=== PATIENT | female | born 1960 ===

== ENCOUNTER 2023-12-12 11:07 | Outpatient (AMB) | payer OTHER, SELFPAY ==
--- NOTE | 2023-12-12 11:13 | MHC.PC.OV ---
Vital Signs 12/12/23 11:14 Height 5 ft 4 in Weight 252 lb 2 oz BMI 43.3 BP 110/68 Blood Pressure Location Lt brachial Position Sitting Respiration 12 Pulse 70 Pulse Source Pulse Oximeter Pulse Oximetry (%) 98 Oxygen Delivery Method Room Air Intake Visit Reasons: EST Care Allergies fentanyl Allergy (Severe, Verified 12/12/23 11:27) Hypotension latex Allergy (Severe, Verified 12/12/23 11:27) Rash acetaminophen [From Tylenol] Allergy (Mild, Verified 12/12/23 11:27) Nausea dimenhydrinate [From Dramamine] Adverse Reaction (Severe, Verified 12/12/23 11:27) Nausea and Vomiting anesthesia Allergy (Severe, Uncoded 12/12/23 11:27) Hypotension fluorescein stain Allergy (Severe, Uncoded 12/12/23 11:27) Anaphylaxis sulfa drugs Allergy (Severe, Uncoded 12/12/23 11:27) Itching excedrine Allergy (Mild, Uncoded 12/12/23 11:27) Nausea Medication List - Last Reconciled 12/12/23 by Asia Motley MD alcohol swabs (BD Alcohol Swabs) pad topical blood-glucose meter,continuous (Dexcom G6 Repairer Kiln Car) As directed blood-glucose sensor (Dexcom G6 Sensor device) As directed insulin aspart U-100 (Novolog FlexPen U-100 Insulin aspart) 1 sliding scale dose subcut USEASDIRECTD insulin degludec (Tresiba FlexTouch U-200 insulin) 20 units subcut BEDTIME insulin pump cart,automated,BT (Omnipod 5 G6 Pods (Gen 5) subcutaneous cartridge) As directed olmesartan-hydrochlorothiazide 40-25 mg 1 tab PO DAILY omeprazole 40 mg PO DAILY pen needle, diabetic (BD Jannette 2nd Gen Pen Needle) As directed Tobacco use date assessed: 12/12/23 Dental Screening Dental Screen Date: 12/12/23 Did you have a dental visit in the last 12 months?: Yes Did you have a dental problem in the last 6 months where you did not have access to dental care?: No Was dental information given to patient?: Yes HPI HPI Comments History of Present Illness Details 63 y/o female with a past medical history of type 1 diabetes, hypertension, GERD, HAYDEE, presenting to [facility] Moved from [place] in Jun 2023 Endocrine-Type 1 diabetes. Sep A1C 6.1%. Dr Rivas. Upcoming visit. GERD: Stable on omeprazole. Tracheomalacia. Believes she had Colonoscopy 2022 Mammo UTD Follows with inclusion manager [facility] Social History (Updated 12/12/23 @ 11:30 by Domonique Roberts [facility]) Housing: House Are you a primary critical care rn to a significant other at home: No Do you presently have visiting nurse or other home services: No 75 years or older and lives alone: No Alcohol intake: never Patient Tobacco Use Status: Never used Tobacco e-Cigarette/Vaping Use: Never Used service: No Current occupational status: retired Cognitive needs: No Hearing needs: No Vision needs: No Questionnaire PHQ-9 Over the last 2 weeks, how often have you been bothered by any of the following problems? 1. Little interest or pleasure in doing things: not at all 2. Feeling down, depressed, or hopeless: not at all 3. Trouble falling or staying asleep, or sleeping too much: not at all 4. Feeling tired or having little energy: more than half the days 5. Poor appetite or overeating: nearly every day 6. Feeling bad about yourself - or that you are a failure or have let yourself or your family down: not at all 7. Trouble concentrating on things, such as reading the newspaper or watching television: not at all 8. Moving or speaking so slowly that other people could have noticed. Or the opposite - being so fidgety or restless that you have been moving around a lot more than usual: not at all 9. Thoughts that you would be better off or of hurting yourself in some way: not at all Total score: 5 Depression Screening Interpretation: Negative (neg) Depression Screening Done: Yes 86977 - PHQ-9 Billing: Yes Source: Developed by Drs. Tremayne Borrego, Jigna Turk, Jason Stephen and colleagues, with an educational mikayla from [employer]. Thrive Questionnaire Date Thrive assessed: 12/12/23 I am a: Patient What is your living situation today?: I have a steady place to live Within the past 12 months, did the food you bought not last and you didn't have the money to get more?: Never true Within the past 12 months, did you worry whether your food would run out before you got money to buy more?: Never true Do you have trouble paying for medicines?: No Do you have trouble getting transportation to medical appointments?: No Do you have trouble paying your heating and electricity bill?: No Do you have trouble taking care of your child, family member or friend?: No Do you have trouble with day-to-day activities such as bathing, preparing meals, shopping, managing finances, etc.?: No Are you currently unemployed and looking for a job?: No Are you interested in more education?: No Please select the resources that you would like help with: None Currently or been in a relationship where the following occur: no concerns reported THRIVE Score: 0 AUDIT C Alcohol Use Questionnaire (AUDIT-C) 1. How often do you have a drink containing alcohol?: Never 3. How often do you have six or more drinks on one occasion?: Never Total Score: 0 RODRIGO-7 AMB Questionnaire RODRIGO-7 Date RODRIGO - 7 assessed: 12/12/23 Feeling nervous, anxious, or on edge: 0 = Not at all Not being able to stop or control worryin = Not at all Worrying too much about different things: 0 = Not at all Trouble relaxin = Not at all Being so restless that it is hard to sit still: 0 = Not at all Becoming easily annoyed or irritable: 0 = Not at all Feeling afraid as if something awful might happen: 0 = Not at all Total RODRIGO-7 score (0-4 normal; 5-9 mild; 10-14 moderate; 15-21 severe): 0 Source: Developed by Drs. Tremayne Borrego, Jigna Turk, Jason Stephen and colleagues, with an educational mikayla from [employer]. RODRIGO-7 Assessment Billing RODRIGO-7 Assessment Tool: RODRIGO-7 Assessment 70712 Review of Systems Const Details: ROS CONSTITUTIONAL: Denies weight loss, fever and chills. HEENT: Denies changes in vision and hearing. RESPIRATORY: Denies SOB and cough. CV: Denies palpitations and CP GI: Denies abdominal pain, nausea, vomiting and diarrhea. : Denies dysuria and urinary frequency. MSK: Denies myalgia and joint pain. SKIN: Denies rash and pruritus. NEUROLOGICAL: Denies headache and syncope. PSYCHIATRIC: Denies recent changes in mood. Denies anxiety and depression. Physical exam (Primary Care) Vital Signs: Last Vital Signs Pulse 70 12/12/23 11:14 Resp 12 12/12/23 11:14 BP 110/68 12/12/23 11:14 Pulse Ox 98 12/12/23 11:14 Oxygen Delivery Method Room Air 12/12/23 11:14 BMI result Body Mass Index 43.3 Tobacco/Smoking Status: Tobacco use Status Tobacco use date assessed 12/12/23 12/12/23 11:33 Patient Tobacco Use Status Never used Tobacco 12/12/23 11:33 e-Cigarette/Vaping Use Never Used 12/12/23 11:33 Depression Screening Interpretation: Negative (neg) Currently or been in a relationship where the following occur: no concerns reported Const Other: PHYSICAL EXAM: GENERAL: Alert and oriented x 3. No acute distress. Well-nourished. EYES: EOMI. Anicteric. HENT: Moist mucous membranes. No scleral icterus. No cervical lymphadenopathy. LUNGS: Clear to auscultation bilaterally. No accessory muscle use. CARDIOVASCULAR: Regular rate and rhythm. No murmur. No JVD. ABDOMEN: Soft, non-tender and non-distended. No palpable masses. EXTREMITIES: No edema. Non-tender.?SKIN: No rashes or lesions. Warm. NEUROLOGIC: No focal neurological deficits. CN II-XII grossly intact PSYCHIATRIC: Cooperative. Appropriate mood and affect. Assessment and Plan Assessment & Plan (1) Establishing care with new doctor, encounter for: Code(s): Z76.89 - Persons encountering health services in other specified circumstances Plan: 63 year old female presenting to establish care. Past medical, surgical, social and family history reviewed. Preventive care measures up to date (2) Primary hypertension: Comment: Controlled on current medication. Efforts toward weight loss including dietary, exercise and pharmacologic discussed. Code(s): I10 - Essential (primary) hypertension (3) Type 1 diabetes: Comment: Controlled. She has an upcoming visit with her grave cleaner Code(s): E10.9 - Type 1 diabetes mellitus without complications Qualifiers: Diabetes mellitus complication status: without complication Qualified Code(s): E10.9 - Type 1 diabetes mellitus without complications (4) Insulin long-term use: Code(s): Z79.4 - intermission coordinator (current) use of insulin (5) GERD (gastroesophageal reflux disease): Code(s): K21.9 - Gastro-esophageal reflux disease without esophagitis Qualifiers: Esophagitis presence: esophagitis presence not specified Qualified Code(s): K21.9 - Gastro-esophageal reflux disease without esophagitis Plan: controlled on PPI therapy. Referral placed to pulmonary (6) Tracheomalacia: Code(s): J39.8 - Other specified diseases of upper respiratory tract (7) HAYDEE (obstructive sleep apnea): Comment: referrral to pulm for HAYDEE management Code(s): G47.33 - Obstructive sleep apnea (adult) (pediatric) (8) Screening for deficiency anemia: Code(s): Z13.0 - Encounter for screening for diseases of the blood and blood-forming organs and certain disorders involving the immune mechanism Orders: Orders Complete Blood Count Auto Diff Today Z13.0 - Encounter for screening for diseases of the blood and blood-forming organs and certain disorders involving the immune mechanism Referrals Pulmonology Referral G47.33 - Obstructive sleep apnea (adult) (pediatric) Gastroenterology Referral J39.8 - Other specified diseases of upper respiratory tract, K21.9 - Gastro-esophageal reflux disease without esophagitis Medications: Changed From olmesartan-hydrochlorothiazide 40-25 mg 1 tab PO DAILY 90 tabs 0RF To olmesartan-hydrochlorothiazide 40-25 mg 1 tab PO DAILY 90 days 90 tabs 3RF Coding Level of Care Code New Pt Level 5 (34373) Diagnoses Establishing care with new doctor, encounter for Z76.89 Primary hypertension I10 Type 1 diabetes mellitus without complication E10.9 Diabetes mellitus complication status: without complication Insulin long-term use Z79.4 Gastroesophageal reflux disease, unspecified whether esophagitis present K21.9 Esophagitis presence: esophagitis presence not specified Tracheomalacia J39.8 HAYDEE (obstructive sleep apnea) G47.33 Screening for deficiency anemia Z13.0 Additional Codes RODRIGO-7 Assessment Billing - RODRIGO-7 Assessment Tool: RODRIGO-7 Assessment [id number] ([id number]) Time Spent (min) 65
[2023-12-12 11:14] VITALS: BP 110/68; PULSE 70; RESP 12; O2SAT 98; BMI 43.3
== END 2023-12-12 12:21 | disposition home or self-care (01) ==
PROVIDERS: PCP Internal Medicine; Visit Provider Internal Medicine
DX: Z76.89 Persons encountering health services in other specified circumstances (principal); I10 Essential (primary) hypertension; E10.9 Type 1 diabetes mellitus without complications; Z79.4 Long term (current) use of insulin; K21.9 Gastro-esophageal reflux disease without esophagitis; J39.8 Other specified diseases of upper respiratory tract; G47.33 Obstructive sleep apnea (adult) (pediatric); Z13.0 Encounter for screening for diseases of the blood and blood-forming organs and certain disorders involving the immune mechanism
CPT/HCPCS: 99205

== ENCOUNTER 2023-12-29 14:45 | Outpatient (REF) | payer OTHER, SELFPAY | END 2023-12-29 14:46 | disposition home or self-care (01) | LOC: CF 14:45 | DX: Z13.89 Encounter for screening for other disorder (principal) ==

== ENCOUNTER 2023-12-31 14:22 | Outpatient (AMB) | payer OTHER, SELFPAY ==
[2023-12-31 14:25] VITALS: BP 120/64; PULSE 76; O2SAT 97; BMI 44.5
--- NOTE | 2023-12-31 14:25 | A.OFFVIS_ITS ---
Vital Signs 3 12/31/23 14:25 Height 5 ft 4 in Weight 259 lb 4 oz BMI 44.5 BP 120/64 Blood Pressure Location Lt brachial Position Sitting Pulse 76 Pulse Source Pulse Oximeter Pulse Oximetry (%) 97 Oxygen Delivery Method Room Air Intake Visit Reasons: Obstructive sleep apnea Allergies fentanyl Allergy (Severe, Verified 12/31/23 14:33) Hypotension latex Allergy (Severe, Verified 12/31/23 14:33) Rash acetaminophen [From Tylenol] Allergy (Mild, Verified 12/31/23 14:33) Nausea dimenhydrinate [From Dramamine] Adverse Reaction (Severe, Verified 12/31/23 14:33) Nausea and Vomiting anesthesia Allergy (Severe, Uncoded 12/31/23 14:33) Hypotension fluorescein stain Allergy (Severe, Uncoded 12/31/23 14:33) Anaphylaxis sulfa drugs Allergy (Severe, Uncoded 12/31/23 14:33) Itching excedrine Allergy (Mild, Uncoded 12/31/23 14:33) Nausea HPI HPI Obstructive sleep apnea: Details: Aleyda is a pleasant 63 year old female, never smoker, with underlying asthma, HAYDEE on CPAP, tracheomalacia, vocal cord dysfunction, DM type I and GERD. She was referred by PCP to establish pulmonary care as she was previously under the care of pulmonary in [place]. She has been maintained on Advair 115 mcg with moderate control of symptoms. She reports dyspnea with moderate exertion, occasional wheezing and chronic dry cough. She denies any chest tightness. She has been maintained on CPAP therapy for severe HAYDEE, 5-20 cm and reports 100% compliance. Reviewed [employer] [facility] on phone to confirm. Will defer updated sleep study at this time, however patient denies overnight oximetry to assess resolution with CPAP therapy. Chest CT from 08/2022 which revealed multiple small pulmonary nodules as well as trachomalacia. She reports good control of GERD symptoms with PPI. She had an echo for evaluation of dyspnea which revealed LVEF 60-65% with mildly enlarged right ventricle with RVSP 21. She denies any occupational exposures. Reports multiple first degree family members with asthma. [facility] Medical History (Updated 01/06/24 @ 19:50 by Alexandra Almanza NP) Screening for deficiency anemia HAYDEE (obstructive sleep apnea) Tracheomalacia GERD (gastroesophageal reflux disease) Insulin long-term use Primary hypertension Type 1 diabetes Surgical History (Updated 12/12/23 @ 13:13 by Domonique Roberts CMA) History of vitrectomy History of cataract surgery History of carpal tunnel release History of partial hysterectomy History of bilateral breast reduction surgery Previous section Family History (Updated 12/12/23 @ 13:04 by Domonique Roberts CMA) Other Family history unknown Social History (Reviewed 12/31/23 @ 14:29 by Lila Dumont [facility]) Household Members: Family Housing: House Are you a primary career portals teacher to a significant other at home: No Do you presently have visiting nurse or other home services: No 75 years or older and lives alone: No Alcohol intake: never Patient Tobacco Use Status: Never used Tobacco e-Cigarette/Vaping Use: Never Used service: No Current occupational status: retired Cognitive needs: No Hearing needs: No Vision needs: No Review of Systems Const Denies chills, Denies excessive sweating, Denies fever(s), Denies headache(s) and Denies night sweats Eyes Denies dry eyes, Denies irritation and Denies itchy eyes ENT Reports Normal hearing present, Denies headache(s), Denies nasal congestion, Denies nasal discharge, Denies post nasal drip and Denies sore throat Card Denies chest pain, Denies chest pain at rest, Denies chest pain with activity, Denies claudication, Denies leg edema, Denies dyspnea, Denies dyspnea on exertion, Denies orthopnea and Denies paroxysmal nocturnal dyspnea Resp Denies chest congestion, Denies cough, Denies excessive phlegm production, Denies pain on inspiration, Denies pain with cough, Denies dyspnea, Denies dyspnea on exertion, Denies stridor and Denies wheezing Musc Denies myalgias Neuro Reports Normal hearing present and Denies headache(s) Endo Denies excessive sweating Tim/Lymph Denies lymphadenopathy Aller/Immun Denies itchy eyes, Denies seasonal rhinorrhea and Denies wheezing Physical Exam Vital Signs: Last Vital Signs Pulse 76 12/31/23 14:25 BP 120/64 12/31/23 14:25 Pulse Ox 97 12/31/23 14:25 Oxygen Delivery Method Room Air 12/31/23 14:25 BMI result Body Mass Index 44.5 Const General: cooperative, healthy appearing, comfortable, no acute distress, well developed and alert Nutritional Appearance: obese Orientation/consciousness: patient oriented x3 Limitations: no limitations HEENT Head: Yes normal to inspection, Yes normocephalic and Yes atraumatic Ears: hearing grossly normal bilaterally and external ears normal Eyes General: appearance normal, both eyes and all related structures Eyelids: Yes eyelids normal Sclerae: sclerae normal EOM: EOMs intact bilaterally Neck Neck: Yes normal visual inspection and Yes no lymphadenopathy Lymphatic: no lymphadenopathy noted Chest Chest palpation & inspection: normal inspection of the chest Resp Effort & Inspection: normal respiratory effort, able to speak in complete sentences, no audible wheezes, no cough, no stridor, not tachypneic, no tripod positioning and no use of accessory muscles Auscultation: clear to auscultation bilaterally Cardio Jugular venous distension: no JVD Rate: regular rate Rhythm: regular rhythm Skin Other: warm, dry General skin exam: no rashes or lesions noted Neuro General: patient oriented x3 Cranial nerves: Yes Normal hearing present Cognition (Neuro): normal cognition Gait exam (Neuro): Normal gait present Extrem General: Yes normal to inspection, Yes capillary refill normal, Yes no clubbing, cyanosis or edema and Yes no pedal edema Psych Appearance: grossly normal and well kempt Speech and movement: Normal speech and movement present and Clear speech present Affect: normal affect Attitude: cooperative Thought process: Normal thought process present Thought content: Normal thought content present Insight: Good insight present (Psych) Judgement: Good judgement present (Psych) Results Reviewed Results Reviewed: Assessment & Plan Assessment & Plan (1) Asthma: Code(s): J45.909 - Unspecified asthma, uncomplicated Category: Medical (2) HAYDEE (obstructive sleep apnea): Code(s): G47.33 - Obstructive sleep apnea (adult) (pediatric) Category: Medical (3) Tracheomalacia: Code(s): J39.8 - Other specified diseases of upper respiratory tract Category: Medical (4) GERD (gastroesophageal reflux disease): Code(s): K21.9 - Gastro-esophageal reflux disease without esophagitis Category: Medical Qualifiers: Esophagitis presence: esophagitis presence not specified Qualified Code(s): K21.9 - Gastro-esophageal reflux disease without esophagitis (5) Multiple pulmonary nodules: Code(s): R91.8 - Other nonspecific abnormal finding of lung field Category: Medical (6) Nocturnal hypoxemia: Code(s): G47.34 - Idiopathic sleep related nonobstructive alveolar hypoventilation Category: Medical Plan Aleyda presents to establish pulmonary care for HAYDEE and asthma. She reports 100% compliance with CPAP therapy, which is reflected in [employer] ranjith. Prior sleep study noted nocturnal hypoxemia however patient never had overnight oximetry to assess for resolution with CPAP therapy. Will enter this. At this time, respiratory symptoms are moderately controlled on Advair, will continue this. Patient does report chronic cough which is likely multifactorial with contirbution from GERD, PND, and tracheobronchomalacia. Will continue to monitor, may benefit from ENT/GI referral. Reviewed prior chest CT which revealed tracheomalacia as well as multiple pulmonary nodules. Will send for repeat chest CT in August 2023 to assess for stability. PFT 08/2022 revealed FEV!/FVC 68, FEV1 64 and DLCO 99%. All questions were answered and patient is in agreement of plan. Will follow up to review results or sooner if needed. Orders: Orders 2 Overnight Pulse Oximetry Today G47.34 - Idiopathic sleep related nonobstructive alveolar hypoventilation CT chest wo IV con 7 Months R91.8 - Other nonspecific abnormal finding of lung field Medications: New 2 fluticasone propion-salmeterol 115-21 mcg/actuation (Advair HFA) 2 puffs inhalation Q12H 12 grams 6RF Coding Level of Care Code New Pt Level 4 (23243) Diagnoses Asthma J45.909 HAYDEE (obstructive sleep apnea) G47.33 Tracheomalacia J39.8 Gastroesophageal reflux disease, unspecified whether esophagitis present K21.9 Esophagitis presence: esophagitis presence not specified Multiple pulmonary nodules R91.8 Nocturnal hypoxemia G47.34
== END 2023-12-31 15:44 | disposition home or self-care (01) ==
PROVIDERS: PCP Internal Medicine; Visit Provider Nurse Practitioner Family
DX: J45.909 Unspecified asthma, uncomplicated (principal); G47.33 Obstructive sleep apnea (adult) (pediatric); J39.8 Other specified diseases of upper respiratory tract; K21.9 Gastro-esophageal reflux disease without esophagitis; R91.8 Other nonspecific abnormal finding of lung field; G47.34 Idiopathic sleep related nonobstructive alveolar hypoventilation
CPT/HCPCS: 99204

== ENCOUNTER → 2023-12-31 14:22 | Outpatient (BNVA) | payer OTHER, SELFPAY | PROVIDERS: PCP Internal Medicine; Visit Provider Nurse Practitioner Family ==

== ENCOUNTER 2024-02-13 09:39 | Outpatient (AMB) | payer OTHER, SELFPAY ==
--- NOTE | 2024-02-13 10:09 | A.OFFPC_ITS ---
Vital Signs 02/13/24 10:18 Height 5 ft 4 in Weight 251 lb BMI 43.1 BP 118/62 Blood Pressure Location Lt brachial Position Sitting Pulse 59 Pulse Source Pulse Oximeter Pulse Oximetry (%) 95 Oxygen Delivery Method Room Air Intake Visit Reasons: Type1 Diabetes Intake Note: Follow up. A1c 6.2 at Endocrinology on 12/26/23 Allergies fentanyl Allergy (Severe, Verified 02/13/24 10:13) Hypotension latex Allergy (Severe, Verified 02/13/24 10:13) Rash acetaminophen [From Tylenol] Allergy (Mild, Verified 02/13/24 10:13) Nausea dimenhydrinate [From Dramamine] Adverse Reaction (Severe, Verified 02/13/24 10:13) Nausea and Vomiting anesthesia Allergy (Severe, Uncoded 02/13/24 10:13) Hypotension fluorescein stain Allergy (Severe, Uncoded 02/13/24 10:13) Anaphylaxis sulfa drugs Allergy (Severe, Uncoded 02/13/24 10:13) Itching excedrine Allergy (Mild, Uncoded 02/13/24 10:13) Nausea Tobacco use date assessed: 12/12/23 Dental Screening Dental Screen Date: 12/12/23 HPI HPI Comments History of Present Illness Details 63 y/o female with a past medical histor y of type 1 diabetes, hypertension, GERD, HAYDEE, presenting to [facility] care Moved from [place] in Jun 2023 Endocrine-Type [address] Rivas. GERD: Stable on omeprazole. Tracheomalacia. She has referral to GI pending. Saw pulmonary. 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 HEENT: Denies changes in vision and hearing. RESPIRATORY: Denies SOB and cough. CV: Denies palpitations and CP GI: Denies abdominal pain, nausea, vomiting and diarrhea. : Denies dysuria and urinary frequency. MSK: Denies new myalgia and joint pain. SKIN: Denies rash and pruritus. NEUROLOGICAL: Denies headache PSYCHIATRIC: Denies recent changes in mood. PHYSICAL EXAM: GENERAL: Alert and oriented x 3. NAD EYES: EOMI. Anicteric. HENT: Moist mucous membranes. No scleral icterus. No cervical lymphadenopathy. LUNGS: Clear to auscultation bilaterally. CARDIOVASCULAR: Regular rate and rhythm. No murmur. No JVD. ABDOMEN: Soft, non-tender +bs EXTREMITIES: No edema. Non-tender. SKIN: No rashes or lesions. Warm. NEUROLOGIC: No focal neurological deficits. CN II-XII grossly intact PSYCHIATRIC: Cooperative. Appropriate mood and affect [facility] Medical History (Updated 02/15/24 @ 11:55 by Asia Motley MD) Screening for deficiency anemia HAYDEE (obstructive sleep apnea) Tracheomalacia GERD (gastroesophageal reflux disease) Insulin long-term use Primary hypertension Type 1 diabetes Surgical History (Updated 12/12/23 @ 13:13 by Domonique Roberts [facility]) History of vitrectomy History of cataract surgery History of carpal tunnel release History of partial hysterectomy History of bilateral breast reduction surgery Previous section Family History (Updated 12/12/23 @ 13:04 by Domonique Roberts CMA) Other Family history unknown Social History (Reviewed 12/31/23 @ 14:29 by Lila Dumont [facility]) Household Members: Family Housing: House Are you a primary field care advocate to a significant other at home: No Do you presently have visiting nurse or other home services: No 75 years or older and lives alone: No Alcohol intake: never Patient Tobacco Use Status: Never used Tobacco e-Cigarette/Vaping Use: Never Used service: No Current occupational status: retired Cognitive needs: No Hearing needs: No Vision needs: No Questionnaire Thrive Questionnaire Date Thrive assessed: 12/12/23 RODRIGO-7 AMB Questionnaire RODRIGO-7 Date RODRIGO - 7 assessed: 12/12/23 Source: Developed by Drs. Tremayne Borrego, Jigna Turk, Jason Stephen and colleagues, with an educational mikayla from [employer]. Physical exam (Primary Care) Vital Signs: Last Vital Signs Pulse 59 02/13/24 10:18 BP 118/62 02/13/24 10:18 Pulse Ox 95 02/13/24 10:18 Oxygen Delivery Method Room Air 02/13/24 10:18 BMI result Body Mass Index 43.1 Tobacco/Smoking Status: Tobacco use Status Tobacco use date assessed 12/12/23 02/13/24 10:10 Patient Tobacco Use Status Never used Tobacco 02/13/24 10:10 e-Cigarette/Vaping Use Never Used 02/13/24 10:10 Thrive Assessment: Date of Thrive Assessment Date Thrive assessed 12/12/23 02/13/24 10:10 Assessment and Plan Assessment & Plan (1) HAYDEE (obstructive sleep apnea): Code(s): G47.33 - Obstructive sleep apnea (adult) (pediatric) (2) GERD (gastroesophageal reflux disease): Code(s): K21.9 - Gastro-esophageal reflux disease without esophagitis Qualifiers: Esophagitis presence: esophagitis presence not specified Qualified Code(s): K21.9 - Gastro-esophageal reflux disease without esophagitis (3) Type 1 diabetes: Comment: Controlled. Code(s): E10.9 - Type 1 diabetes mellitus without complications Qualifiers: Diabetes mellitus complication status: without complication Qualified Code(s): E10.9 - Type 1 diabetes mellitus without complications Medications: New scopolamine base 1 patch transdermal Q3D PRN 10 ea 0RF motion sickness scopolamine base 1 patch transdermal Q3D PRN 10 ea 3RF motion sickness 90 days ondansetron 4 mg PO Q8H PRN 30 tabs 1RF nausea and vomiting ondansetron 4 mg PO Q8H PRN 60 tabs 3RF nausea and vomiting 90 days Changed From fluticasone propion-salmeterol 115-21 mcg/actuation (Advair HFA) 2 puffs inhalation Q12H 12 grams 6RF To fluticasone propion-salmeterol 115-21 mcg/actuation (Advair HFA) 2 puffs inhalation Q12H 36 grams 3RF 3 months Refilled fluticasone propion-salmeterol 115-21 mcg/actuation (Advair HFA) 2 puffs inhalation Q12H 12 grams 6RF Coding Level of Care Code Est Pt Level 4 (35692) Diagnoses HAYDEE (obstructive sleep apnea) G47.33 Gastroesophageal reflux disease, unspecified whether esophagitis present K21.9 Esophagitis presence: esophagitis presence not specified Type 1 diabetes mellitus without complication E10.9 Diabetes mellitus complication status: without complication
[2024-02-13 10:18] VITALS: BP 118/62; PULSE 59; O2SAT 95; BMI 43.1
== END 2024-02-13 10:52 | disposition home or self-care (01) ==
PROVIDERS: PCP Internal Medicine; Visit Provider Internal Medicine
DX: G47.33 Obstructive sleep apnea (adult) (pediatric) (principal); K21.9 Gastro-esophageal reflux disease without esophagitis; E10.9 Type 1 diabetes mellitus without complications
CPT/HCPCS: 99214

== ENCOUNTER 2024-03-16 10:33 | Outpatient (REF) | payer OTHER, SELFPAY ==
[2024-03-16 12:48] LABS: Lipase 10 U/L (8-78)
[2024-03-16 13:23] LABS: Folate 4.8 ng/mL (> or = 4.0); Vitamin B12 440 pg/mL (200-900)
[2024-03-17 22:54] LABS: Transglutaminase Ab IgG 1.4 U/mL; Transglutaminase IgA <1.0 U/mL
[2024-03-21 16:13] LABS: Vitamin D 25-OH, D2 <4 ng/mL; Vitamin D 25-OH, D3 34 ng/mL; Vitamin D 25-OH, Total 34 ng/mL (30-100)
== END 2024-03-16 10:34 | disposition home or self-care (01) ==
LOC: HO.LAB 10:33
PROVIDERS: PCP Internal Medicine; Visit Provider Nurse Practitioner Family
DX: R10.9 Unspecified abdominal pain (principal); R19.7 Diarrhea, unspecified; E55.9 Vitamin D deficiency, unspecified; K21.9 Gastro-esophageal reflux disease without esophagitis
CPT/HCPCS: 36415; 82306; 82607; 82746; 83690; 86364

== ENCOUNTER 2024-03-16 10:33 | Outpatient (AMB) | payer OTHER, SELFPAY ==
--- NOTE | 2024-03-16 10:39 | MHC.OFFVIS ---
Vital Signs 03/16/24 10:40 Height 5 ft 4 in Weight 253 lb 15.56 oz BMI 43.6 BP 106/46 L Blood Pressure Location Rt brachial Position Sitting Pulse 60 Pulse Source Pulse Oximeter Pulse Oximetry (%) 96 Oxygen Delivery Method Room Air Intake Visit Reasons: Gastroesophageal reflux disease (GERD) Intake Note: Aleyda presents in office today for a scheduled initial assessment and possible egd s/p consult. CC; Pt reports that their last colo and egd was dated for 04/24/23. Pt reports that they are taking omeprazole PRN and they feel that they are well controlled with this regimen. Pt does have occasional breakthrough sx but they typically are able to manage their diet and trigger foods. Pt is here to re-establish care after moving from the [facility]. 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 Allergies fentanyl Allergy (Severe, Verified 03/16/24 10:49) Hypotension latex Allergy (Severe, Verified 03/16/24 10:49) Rash acetaminophen [From Tylenol] Allergy (Mild, Verified 03/16/24 10:49) Nausea dimenhydrinate [From Dramamine] Adverse Reaction (Severe, Verified 03/16/24 10:49) Nausea and Vomiting anesthesia Allergy (Severe, Uncoded 02/13/24 10:13) Hypotension fluorescein stain Allergy (Severe, Uncoded 02/13/24 10:13) Anaphylaxis sulfa drugs Allergy (Severe, Uncoded 02/13/24 10:13) Itching excedrine Allergy (Mild, Uncoded 02/13/24 10:13) Nausea HPI HPI Gastroesophageal reflux disease (GERD): Details: 63-year-old female with past medical history of diabetes, nocturnal hypoxemia, pulmonary nodules, asthma, HAYDEE, GERD, diabetes, hypertension is here today for initial consultation. Patient was sent to us by her PCP. Patient recently moved from [place] and is here to reestablish care. Patient reports that she had upper endoscopy and colonoscopy in 2022. Patient has chronic acid reflux and has used omeprazole on as needed basis. Patient denies any nausea or vomiting. Denies any dyspepsia, dysphagia or odynophagia. Reports to have reflux depending on what she eats. Patient reports that she is trying to eat better pick food that is not triggering her symptoms. Patient reports that she is not eating late at night. Patient is insulin dependent diabetic. Reports that her sugars are well controlled for the most part. Patient denies any abdominal pain or discomfort. Denies any nausea or vomiting. Patient reports that she is moving her bowels without any issues. Denies any diarrhea or constipation. [facility] Medical History Screening for deficiency anemia HAYDEE (obstructive sleep apnea) Tracheomalacia GERD (gastroesophageal reflux disease) Insulin long-term use Primary hypertension Type 1 diabetes Surgical History History of vitrectomy History of cataract surgery History of carpal tunnel release History of partial hysterectomy History of bilateral breast reduction surgery Previous section Family History Other Family history unknown Social History Household Members: Family Housing: House Are you a primary caregivers homecare to a significant other at home: No Do you presently have visiting nurse or other home services: No Alcohol intake: never Patient Tobacco Use Status: Never used Tobacco e-Cigarette/Vaping Use: Never Used service: No Current occupational status: retired Cognitive needs: No Hearing needs: No Vision needs: No Review of Systems Const Denies weight gain and Denies weight loss ENT Reports no additional complaints, Denies dysphagia and Denies odynophagia Card Reports no additional complaints Resp Reports no additional complaints GI Denies abdominal pain, Denies belching, Denies melena, Denies bloating, Denies change in bowel habits, Denies dysphagia, Denies excessive flatus, Denies dyspepsia, Reports heartburn (Occasional), Denies diarrhea, Denies loose stools, Denies nausea, Denies odynophagia and Denies vomiting Reports no additional complaints Musc Reports no additional complaints Neuro Reports no additional complaints Psych Reports no additional complaints Endo Reports no additional complaints Physical Exam Vital Signs: Last Vital Signs Pulse 60 03/16/24 10:40 BP 106/46 L 03/16/24 10:40 Pulse Ox 96 03/16/24 10:40 Oxygen Delivery Method Room Air 03/16/24 10:40 BMI result Body Mass Index 43.6 Assessment & Plan Assessment & Plan (1) GERD (gastroesophageal reflux disease): Code(s): K21.9 - Gastro-esophageal reflux disease without esophagitis Category: Medical Qualifiers: Esophagitis presence: esophagitis presence not specified Qualified Code(s): K21.9 - Gastro-esophageal reflux disease without esophagitis Plan Patient will start taking pantoprazole daily. Will send her for upper GI series to evaluate her reflux. Avoid dietary triggers and late night snacking. Staying upright for minimum 3 hours after meals discussed with patient. Patient will follow-up in 3 months, sooner on as needed basis. She is agreeable to this plan and verbalizes understanding of instructions. She was given the opportunity to ask questions and all questions answered. Thank you for allowing me to participate in her care Orders: Orders FL upper GI small bowel 03/16/24 K21.9 - Gastro-esophageal reflux disease without esophagitis Vitamin B12 and Folate 03/16/24 R19.7 - Diarrhea, unspecified Transglutaminase IgA 03/16/24 R10.9 - Unspecified abdominal pain Lipase 03/16/24 R10.9 - Unspecified abdominal pain Vitamin D 25-OH (D2 and D3) 03/16/24 E55.9 - Vitamin D deficiency, unspecified Transglutaminase Ab IgG 03/16/24 R10.9 - Unspecified abdominal pain Referrals Gastroenterology Referral K21.9 - Gastro-esophageal reflux disease without esophagitis, J39.8 - Other specified diseases of upper respiratory tract Medications: New pantoprazole 20 mg PO DAILY 90 tabs 1RF Coding Level of Care Code New Pt Level 3 (39686) Diagnoses Gastroesophageal reflux disease, unspecified whether esophagitis present K21.9 Esophagitis presence: esophagitis presence not specified Time Spent (min) 40 Comment 30 minutes spent with patient and additional 10 minutes spent reviewing her records
[2024-03-16 10:40] VITALS: BP 106/46; PULSE 60; O2SAT 96; BMI 43.6
== END 2024-03-16 11:37 | disposition home or self-care (01) ==
PROVIDERS: PCP Internal Medicine; Visit Provider Nurse Practitioner Family
DX: K21.9 Gastro-esophageal reflux disease without esophagitis (principal)
CPT/HCPCS: 99203

== ENCOUNTER 2024-03-30 08:49 | Outpatient (AMB) | payer OTHER, SELFPAY ==
[2024-03-30 08:51] VITALS: BP 126/60; PULSE 63; O2SAT 98; BMI 42.9
--- NOTE | 2024-03-30 08:51 | A.OFFVIS_ITS ---
Vital Signs 03/30/24 08:51 Height 5 ft 4 in Weight 250 lb BMI 42.9 BP 126/60 Blood Pressure Location Rt brachial Position Sitting Pulse 63 Pulse Source Pulse Oximeter Pulse Oximetry (%) 98 Oxygen Delivery Method Room Air Intake Visit Reasons: FU/ Overnight Oximetry Allergies fentanyl Allergy (Severe, Verified 03/30/24 08:56) Hypotension latex Allergy (Severe, Verified 03/30/24 08:56) Rash acetaminophen [From Tylenol] Allergy (Mild, Verified 03/30/24 08:56) Nausea dimenhydrinate [From Dramamine] Adverse Reaction (Severe, Verified 03/30/24 08:56) Nausea and Vomiting anesthesia Allergy (Severe, Uncoded 03/30/24 08:56) Hypotension fluorescein stain Allergy (Severe, Uncoded 03/30/24 08:56) Anaphylaxis sulfa drugs Allergy (Severe, Uncoded 03/30/24 08:56) Itching excedrine Allergy (Mild, Uncoded 03/30/24 08:56) Nausea HPI HPI FU/ Overnight Oximetry: Details: Aleyda is a pleasant 63 year old female, never smoker, with underlying asthma, HAYDEE on CPAP, tracheomalacia, vocal cord dysfunction, DM type I and GERD. At baseline, she reports good control of respiratory symptoms with Advair 115 mcg and albuterol MDI. However she has been without despite prescriptions being sent to pharmacy. She reports continuous use of CPAP therapy and presents today to review overnight oximetry report. She denies any visits to urgent care or hospitalizations since the last visit. She was evaluated by GI for GERD, started on pantoprazole and will be undergoing upper GI series to evaluate reflux. [facility] Medical History Screening for deficiency anemia HAYDEE (obstructive sleep apnea) Tracheomalacia GERD (gastroesophageal reflux disease) Insulin long-term use Primary hypertension Type 1 diabetes Surgical History History of vitrectomy History of cataract surgery History of carpal tunnel release History of partial hysterectomy History of bilateral breast reduction surgery Previous section Family History Other Family history unknown Social History Household Members: Family Housing: House Are you a primary in home caregiver to a significant other at home: No Do you presently have visiting nurse or other home services: No 75 years or older and lives alone: No Alcohol intake: never Patient Tobacco Use Status: Never used Tobacco e-Cigarette/Vaping Use: Never Used service: No Current occupational status: retired Cognitive needs: No Hearing needs: No Vision needs: No Review of Systems Const Denies chills, Denies excessive sweating, Denies fever(s), Denies headache(s) and Denies night sweats Eyes Denies dry eyes, Denies irritation and Denies itchy eyes ENT Reports Normal hearing present, Denies headache(s), Denies nasal congestion, Denies nasal discharge, Denies post nasal drip and Denies sore throat Card Denies chest pain, Denies chest pain at rest, Denies chest pain with activity, Denies claudication, Denies leg edema, Denies dyspnea, Denies dyspnea on exertion, Denies orthopnea and Denies paroxysmal nocturnal dyspnea Resp Denies chest congestion, Denies cough, Denies excessive phlegm production, Denies pain on inspiration, Denies pain with cough, Denies dyspnea, Denies dyspnea on exertion, Denies stridor and Denies wheezing Musc Denies myalgias Neuro Reports Normal hearing present and Denies headache(s) Endo Denies excessive sweating Tim/Lymph Denies lymphadenopathy Aller/Immun Denies itchy eyes, Denies seasonal rhinorrhea and Denies wheezing Physical Exam Vital Signs: Last Vital Signs Pulse 63 03/30/24 08:51 BP 126/60 03/30/24 08:51 Pulse Ox 98 03/30/24 08:51 Oxygen Delivery Method Room Air 03/30/24 08:51 BMI result Body Mass Index 42.9 Const General: cooperative, healthy appearing, comfortable, no acute distress, well developed and alert Nutritional Appearance: obese Orientation/consciousness: patient oriented x3 Limitations: no limitations HEENT Head: Yes normal to inspection, Yes normocephalic and Yes atraumatic Ears: hearing grossly normal bilaterally and external ears normal Eyes General: appearance normal, both eyes and all related structures Eyelids: Yes eyelids normal Sclerae: sclerae normal EOM: EOMs intact bilaterally Neck Neck: Yes normal visual inspection and Yes no lymphadenopathy Lymphatic: no lymphadenopathy noted Chest Chest palpation & inspection: normal inspection of the chest Resp Effort & Inspection: normal respiratory effort, able to speak in complete sentences, no audible wheezes, no cough, no stridor, not tachypneic, no tripod positioning and no use of accessory muscles Auscultation: clear to auscultation bilaterally Cardio Jugular venous distension: no JVD Rate: regular rate Rhythm: regular rhythm Skin Other: warm, dry General skin exam: no rashes or lesions noted Neuro General: patient oriented x3 Cranial nerves: Yes Normal hearing present Cognition (Neuro): normal cognition Gait exam (Neuro): Normal gait present Extrem General: Yes normal to inspection, Yes capillary refill normal, Yes no clubbing, cyanosis or edema and Yes no pedal edema Psych Appearance: grossly normal and well kempt Speech and movement: Normal speech and movement present and Clear speech present Affect: normal affect Attitude: cooperative Thought process: Normal thought process present Thought content: Normal thought content present Insight: Good insight present (Psych) Judgement: Good judgement present (Psych) Assessment & Plan Assessment & Plan (1) Asthma: Code(s): J45.909 - Unspecified asthma, uncomplicated Category: Medical (2) HAYDEE (obstructive sleep apnea): Code(s): G47.33 - Obstructive sleep apnea (adult) (pediatric) Category: Medical (3) Tracheomalacia: Code(s): J39.8 - Other specified diseases of upper respiratory tract Category: Medical (4) GERD (gastroesophageal reflux disease): Code(s): K21.9 - Gastro-esophageal reflux disease without esophagitis Category: Medical Qualifiers: Esophagitis presence: esophagitis presence not specified Qualified Code(s): K21.9 - Gastro-esophageal reflux disease without esophagitis (5) Multiple pulmonary nodules: Code(s): R91.8 - Other nonspecific abnormal finding of lung field Category: Medical Plan Aleyda reports 100% compliance with CPAP therapy, which is reflected in [employer] ranjith. Prior sleep study noted nocturnal hypoxemia however patient never had overnight oximetry to assess for resolution with CPAP therapy. Reviewed and patient had oxygen saturation <88% for a total of 34 seconds. Advised to continue current settings at this time. She noted her respiratory symptoms are moderately controlled on Advair however has been without an inhaler and has had an increase in respiratory symptoms however mild. Will reach out to pharmacy to check status of prescription. She does endorse seasonal allergies, will send for allergy testing. Reviewed prior chest CT which revealed tracheomalacia as well as multiple pulmonary nodules. She is aware there is an order to repeat chest CT in August 2023 to assess for stability. All questions were answered and patient is in agreement of plan. Will follow up in 3 months or sooner if needed. Orders: Orders Resp Allergy Profile Region I Today Z91.09 - Other allergy status, other than to drugs and biological substances Immunoglobulin E Today Z91.09 - Other allergy status, other than to drugs and biological substances Complete Blood Count Auto Diff Today Z91.09 - Other allergy status, other than to drugs and biological substances Coding Level of Care Code Est Pt Level 4 (18061) Diagnoses Asthma J45.909 HAYDEE (obstructive sleep apnea) G47.33 Tracheomalacia J39.8 Gastroesophageal reflux disease, unspecified whether esophagitis present K21.9 Esophagitis presence: esophagitis presence not specified Multiple pulmonary nodules R91.8
== END 2024-03-30 09:46 | disposition home or self-care (01) ==
PROVIDERS: PCP Internal Medicine; Visit Provider Nurse Practitioner Family
DX: J45.909 Unspecified asthma, uncomplicated (principal); G47.33 Obstructive sleep apnea (adult) (pediatric); J39.8 Other specified diseases of upper respiratory tract; K21.9 Gastro-esophageal reflux disease without esophagitis; R91.8 Other nonspecific abnormal finding of lung field
CPT/HCPCS: 99214

== ENCOUNTER → 2024-03-30 08:49 | Outpatient (BNVA) | payer OTHER, SELFPAY | PROVIDERS: PCP Internal Medicine; Visit Provider Nurse Practitioner Family ==

== ENCOUNTER 2024-03-31 09:41 | Outpatient (REF) | payer OTHER, SELFPAY ==
[2024-03-31 11:09] LABS: MANUAL DIFF FLAG NO
[2024-03-31 11:28] LABS: Basophils Percent Auto 0.6 % (0-2); Eosinophils Absolute Auto 0.2 X10*3/uL (0.0-0.4); Eosinophils Percent Auto 3.6 % (0-4); Hematocrit 39.7 % (37.0-47.0); Hemoglobin 13.8 g/dl (12.0-16.0); Imm Gran Abs Auto 0.01 X10*3/uL (0.00-0.03); Imm Gran Pct Auto 0.2 % (0.0-0.4); Lymphocytes Absolute Auto 1.4 X10*3/uL (1.2-4.9); Lymphocytes Percent Auto 25.6 % (20-40); Mean Corpuscular HGB Conc 34.8 g/dl (31.0-35.0); Mean Corpuscular Volume 89.2 fL (80.0-98.0); Mean Platelet Volume 10.3 fL (9.4-12.3); Monocytes Absolute Auto 0.5 X10*3/uL (0.1-1.2); Monocytes Percent Auto 8.9 % (2-11); Neutrophils Absolute Auto 3.2 x10*3/uL (2.0-8.3); Neutrophils Percent Auto 61.1 % (45-73); Platelet Count 216 X10*3/uL (160-400); Red Blood Count 4.45 X10*6/uL (4.20-5.50); Red Cell Distribution Width 13.2 % (11.0-16.0); White Blood Count 5.3 X10*3/uL (4.8-10.8)
[2024-04-01 14:13] LABS: Immunoglobulin E 7 kU/L (<OR=114)
[2024-04-01 19:07] LABS: Class Alternaria alternata 0; Class Aspergillus fumigatus 0; Class Bermuda Grass 0; Class Birch 0; Class Cat Dander 0; Class Cladosporium herbarum 0; Class Cockroach 0; Class Common Ragweed 0; Class Cottonwood 0; Class Derm. pterony 0; Class Dermatophagoides farinae 0; Class Dog Dander 0; Class Elm 0; Class Maple Box Elder 0; Class Mountain Cedar 0; Class Mouse Urine Protein 0; Class Mugwort 0; Class Oak 0; Class Penicillium crysogenum 0; Class Rough Pigweed 0; Class Sheep Sorrel 0; Class Sycamore 0; Class Timothy Grass 0; Class Walnut Tree 0; Class White Ash 0; Class White Mulberry 0; D001 IgE D pteronyssinus <0.10 kU/L; D002 - IgE D farinae <0.10 kU/L; E001 - IgE Cat Dander <0.10 kU/L; E005 - IgE Dog Dander <0.10 kU/L; E072-IgE Mouse Urine <0.10 kU/L; G002 IgE Bermuda Grass <0.10 kU/L; G006 - IgE Timothy Grass <0.10 kU/L; I006-IgE Cockroach, German <0.10 kU/L; Immunoglobulin E 7 kU/L (<OR=114); M001 IgE Penicillium chrysogen <0.10 kU/L; M002 - IgE Cladosporium herbar <0.10 kU/L; M003 - IgE Aspergillus fumigat <0.10 kU/L; M006 - IgE Alternaria alternat <0.10 kU/L; T001 IgE Maple/Box Elder <0.10 kU/L; T003 IgE Common Silver Birch <0.10 kU/L; T006 - IgE Cedar, Mountain <0.10 kU/L; T007 - IgE Oak, White <0.10 kU/L; T008 IgE Elm, American <0.10 kU/L; T010 - IgE Walnut <0.10 kU/L; T011 - IgE Maple Leaf Sycamore <0.10 kU/L; T014 - IgE Cottonwood <0.10 kU/L; T015 - IgE Ash, White <0.10 kU/L; T070 - IgE White Mulberry <0.10 kU/L; W001 - IgE Ragweed, Short <0.10 kU/L; W006 - IgE Mugwort <0.10 kU/L; W014 IgE Pigweed, Common <0.10 kU/L; W018 IgE Sheep Sorrel <0.10 kU/L
== END 2024-03-31 09:42 | disposition home or self-care (01) ==
LOC: HO.WFDLDS 09:41
PROVIDERS: Visit Provider Nurse Practitioner Family
DX: Z91.09 Other allergy status, other than to drugs and biological substances (principal)
CPT/HCPCS: 36415; 82785; 85025; 86003

== ENCOUNTER 2024-05-14 08:08 | Outpatient (REF) | payer OTHER, SELFPAY ==
--- NOTE | ~2024-05-14 | FL_ITS ---
EXAMINATION: XR FLUOROSCOPY UPPER GI WITH AIR CLINICAL INFORMATION: Reflux. COMPARISON: None TECHNIQUE: Fluoroscopic air contrast upper GI examination was performed utilizing standard techniques with thin and thick barium and effervescent granules. Numerous spot images were obtained. FINDINGS: Dual and single contrast images of the esophagus demonstrate normal caliber, contour, and mucosal pattern. No masses or ulcerations are seen. A nonobstructing Schatzki's ring is present. Esophageal peristalsis is moderately disorganized. A moderate-sized type I hiatal hernia is present. Significant gastroesophageal reflux is seen up to the thoracic inlet. Dual contrast and single contrast images of the stomach demonstrated a normal contour. There is a lateral diverticulum noted in the hiatal hernia. No masses or ulcerations are seen. Contrast freely passed into the gastric antrum and duodenal bulb without delay. Single and air-contrast images of the duodenal bulb demonstrate no abnormality. The duodenal sweep has a normal appearance, course, and mucosal fold appearance. The imaged small bowel has a normal fold pattern and caliber. No strictures, masses, or dilated segments are noted. Contrast is observed in the right colon after 30 minutes. FLUOROSCOPY TIME: 3 minutes and seconds Number of Spot Images: 7 Number of Cine: 15 DOSE AREA PRODUCT: 3425 uGy-m2 (microgray-meter squared) FL/FL upper GI w air w SBFT IMPRESSION: 1. Moderately disorganized esophageal peristalsis. 2. Nonobstructing Schatzki's ring. 3. Moderate-sized type I hiatal hernia with severe gastroesophageal reflux. There is a lateral diverticulum noted in the hiatal hernia. 4. Somewhat rapid transit of the barium column, with the right colon opacified within 30 minutes. Etiology is unclear. This procedure was performed by Derrell Gillespie PA-C, and supervised by Dr. Evans Electronically signed by: Pedro Daily MD 05/20/2024 03:19 PM EDT
== END 2024-05-14 08:09 | disposition home or self-care (01) ==
LOC: HO.XRAY 08:08
PROVIDERS: PCP Internal Medicine; Visit Provider Nurse Practitioner Family
DX: K21.9 Gastro-esophageal reflux disease without esophagitis (principal)
CPT/HCPCS: 74246; 74248

== ENCOUNTER → 2024-05-14 09:28 | Outpatient (BNV) | payer OTHER, SELFPAY | PROVIDERS: PCP Internal Medicine; Visit Provider Student in an Organized Health Care Education/Training Program | DX: K21.9 Gastro-esophageal reflux disease without esophagitis (principal) | CPT/HCPCS: 74246 ==

== ENCOUNTER 2024-06-01 11:15 | Outpatient (AMB) | payer OTHER, SELFPAY ==
--- NOTE | 2024-06-01 11:21 | MHC.PC.OV ---
Vital Signs 06/01/24 11:28 Height 5 ft 4 in Weight 253 lb 2 oz BMI 43.4 BP 108/58 L Blood Pressure Location Rt brachial Position Sitting Respiration 16 Pulse 63 Pulse Source Pulse Oximeter Pulse Oximetry (%) 93 Oxygen Delivery Method Room Air Intake Visit Reasons: physical Intake Note: Physical. Wants to discuss pain medication to help with right shoulder pain. Wants to discuss taking citrus bergamot for cholestrol. Also, bernine chromium for weight loss. Renal docotor is not recommending because of kidneys, GI doctor is recommending. Allergies fentanyl Allergy (Severe, Verified 03/30/24 08:56) Hypotension latex Allergy (Severe, Verified 03/30/24 08:56) Rash acetaminophen [From Tylenol] Allergy (Mild, Verified 03/30/24 08:56) Nausea dimenhydrinate [From Dramamine] Adverse Reaction (Severe, Verified 03/30/24 08:56) Nausea and Vomiting anesthesia Allergy (Severe, Uncoded 03/30/24 08:56) Hypotension fluorescein stain Allergy (Severe, Uncoded 03/30/24 08:56) Anaphylaxis sulfa drugs Allergy (Severe, Uncoded 03/30/24 08:56) Itching excedrine Allergy (Mild, Uncoded 03/30/24 08:56) Nausea Tobacco use date assessed: 12/12/23 Dental Screening Dental Screen Date: 12/12/23 HPI HPI Comments History of Present Illness Details 63 y/o female with a past medical history of type 1 diabetes, hypertension, GERD, HAYDEE, presenting for physical exam. Moved from [place] in Jun 2023. Her asthma has been more noticeable since the move. Following with pulmonologuy Endocrine-Type [address] Rivas. Reports frequent daytime urination. Denies dysuria. CV: Blood pressure is well controlled on omesartan/hctz. GERD: Stable on pantoprazole. Tracheomalacia. She saw gastroenterology in February Colonoscopy 2022 Mammo UTD Follows with rn care manager [facility] ROS CONSTITUTIONAL: Denies weight loss, fever and chills. HEENT: Denies changes in vision and hearing. RESPIRATORY: Denies SOB and cough. CV: Denies palpitations and CP GI: Denies abdominal pain, nausea, vomiting and diarrhea. : see hpi MSK: Denies new myalgia and joint pain. SKIN: Denies rash and pruritus. NEUROLOGICAL: Denies headache PSYCHIATRIC: Denies recent changes in mood. PHYSICAL EXAM: GENERAL: Alert and oriented x 3. NAD EYES: EOMI. Anicteric. HENT: Moist mucous membranes. No scleral icterus. No cervical lymphadenopathy. LUNGS: Clear to auscultation bilaterally. CARDIOVASCULAR: Regular rate and rhythm. No murmur. No JVD. ABDOMEN: Soft, non-tender +bs EXTREMITIES: No edema. Non-tender. SKIN: No rashes or lesions. Warm. NEUROLOGIC: No focal neurological deficits. CN II-XII grossly intact PSYCHIATRIC: Cooperative. Appropriate mood and affect [facility] Medical History Screening for deficiency anemia HAYDEE (obstructive sleep apnea) Tracheomalacia GERD (gastroesophageal reflux disease) Insulin long-term use Primary hypertension Type 1 diabetes Surgical History History of vitrectomy History of cataract surgery History of carpal tunnel release History of partial hysterectomy History of bilateral breast reduction surgery Previous section Family History Other Family history unknown Social History Household Members: Family Housing: House Are you a primary home care music therapist to a significant other at home: No Do you presently have visiting nurse or other home services: No Alcohol intake: never Patient Tobacco Use Status: Never used Tobacco e-Cigarette/Vaping Use: Never Used service: No Current occupational status: retired Cognitive needs: No Hearing needs: No Vision needs: No Questionnaire PHQ-9 Over the last 2 weeks, how often have you been bothered by any of the following problems? 1. Little interest or pleasure in doing things: not at all 2. Feeling down, depressed, or hopeless: not at all 3. Trouble falling or staying asleep, or sleeping too much: not at all 4. Feeling tired or having little energy: not at all 5. Poor appetite or overeating: not at all 6. Feeling bad about yourself - or that you are a failure or have let yourself or your family down: not at all 7. Trouble concentrating on things, such as reading the newspaper or watching television: not at all 8. Moving or speaking so slowly that other people could have noticed. Or the opposite - being so fidgety or restless that you have been moving around a lot more than usual: not at all 9. Thoughts that you would be better off or of hurting yourself in some way: not at all Total score: 0 Source: Developed by Drs. Tremayne Borrego, Jigna Turk, Jason Stephen and colleagues, with an educational mikayla from [employer]. Thrive Questionnaire Date Thrive assessed: 06/01/24 I am a: Patient What is your living situation today?: I have a steady place to live Within the past 12 months, did the food you bought not last and you didn't have the money to get more?: I choose not to answer this question Within the past 12 months, did you worry whether your food would run out before you got money to buy more?: I choose not to answer this question Do you have trouble paying for medicines?: I choose not to answer this question Do you have trouble getting transportation to medical appointments?: I choose not to answer this question Do you have trouble paying your heating and electricity bill?: I choose not to answer this question Do you have trouble taking care of your child, family member or friend?: I choose not to answer this question Do you have trouble with day-to-day activities such as bathing, preparing meals, shopping, managing finances, etc.?: No Are you currently unemployed and looking for a job?: No Are you interested in more education?: No Please select the resources that you would like help with: None Currently or been in a relationship where the following occur: No concerns reported THRIVE Score: 0 AUDIT C Alcohol Use Questionnaire (AUDIT-C) 1. How often do you have a drink containing alcohol?: Never 3. How often do you have six or more drinks on one occasion?: Never Total Score: 0 RODRIGO-7 AMB Questionnaire RODRIGO-7 Date RODRIGO - 7 assessed: 06/01/24 Feeling nervous, anxious, or on edge: 0 = Not at all Not being able to stop or control worryin = Not at all Worrying too much about different things: 0 = Not at all Trouble relaxin = Not at all Being so restless that it is hard to sit still: 0 = Not at all Becoming easily annoyed or irritable: 0 = Not at all Feeling afraid as if something awful might happen: 0 = Not at all Total RODRIGO-7 score (0-4 normal; 5-9 mild; 10-14 moderate; 15-21 severe): 0 Source: Developed by Drs. Tremayne Borrego, Jigna Turk, Jason Stephen and colleagues, with an educational mikayla from [employer]. RODRIGO-7 Assessment Billing RODRIGO-7 Assessment Tool: RODRIGO-7 Assessment 59763 Physical exam (Primary Care) Vital Signs: Last Vital Signs Pulse 63 06/01/24 11:28 Resp 16 06/01/24 11:28 BP 108/58 L 06/01/24 11:28 Pulse Ox 93 06/01/24 11:28 Oxygen Delivery Method Room Air 06/01/24 11:28 BMI result Body Mass Index 43.4 Tobacco/Smoking Status: Tobacco use Status Tobacco use date assessed 12/12/23 06/01/24 11:23 Patient Tobacco Use Status Never used Tobacco 06/01/24 11:23 e-Cigarette/Vaping Use Never Used 06/01/24 11:23 PHQ-9: PHQ-9 Score PHQ-9: Total score 0 06/03/24 05:52 Thrive Assessment: Date of Thrive Assessment Date Thrive assessed 06/01/24 06/01/24 11:36 Currently or been in a relationship where the following occur: No concerns reported Coding Level of Care Code Est Pt Prev Care 40-64y(37543) Diagnoses Physical exam Z00.00 Type 1 diabetes mellitus without complication E10.9 Diabetes mellitus complication status: without complication Primary hypertension I10 Additional Codes RODRIGO-7 Assessment Billing - RODRIGO-7 Assessment Tool: RODRIGO-7 Assessment [id number] ([id number]) Assessment & Plan Assessment & Plan (1) Physical exam: Code(s): Z00.00 - Encounter for general adult medical examination without abnormal findings Category: Medical Plan: Preventive measures for age reviewed. Colonoscopy, mammo, rn care manager UTD. Vaccinations UTD (2) Type 1 diabetes: Comment: Controlled. Code(s): E10.9 - Type 1 diabetes mellitus without complications Category: Medical Qualifiers: Diabetes mellitus complication status: without complication Qualified Code(s): E10.9 - Type 1 diabetes mellitus without complications Plan: Continue endocrine follow up. Continued efforts towards weight loss (3) Primary hypertension: Comment: . Code(s): I10 - Essential (primary) hypertension Category: Medical Plan: Controlled on current medication. Efforts toward weight loss including dietary, exercise and pharmacologic discussed. Orders: Orders Comprehensive Met. Panel 06/01/24 E10.9 - Type 1 diabetes mellitus without complications, I10 - Essential (primary) hypertension, K21.9 - Gastro-esophageal reflux disease without esophagitis TSH reflex Free T4 06/01/24 E10.9 - Type 1 diabetes mellitus without complications, I10 - Essential (primary) hypertension, K21.9 - Gastro-esophageal reflux disease without esophagitis UA CC w/rflx Micro + Cult 06/01/24 R30.0 - Dysuria Lipid Panel 06/01/24 E10.9 - Type 1 diabetes mellitus without complications, I10 - Essential (primary) hypertension, K21.9 - Gastro-esophageal reflux disease without esophagitis Medications: New prednisone 40 mg (2 x 20 mg) PO DAILY 10 tabs 0RF cyclobenzaprine 5 mg PO BEDTIME PRN 30 tabs 0RF muscle spasm 30 days
[2024-06-01 11:28] VITALS: BP 108/58; PULSE 63; RESP 16; O2SAT 93; BMI 43.4
== END 2024-06-01 12:01 | disposition home or self-care (01) ==
PROVIDERS: PCP Internal Medicine; Visit Provider Internal Medicine
DX: Z00.00 Encounter for general adult medical examination without abnormal findings (principal); E10.9 Type 1 diabetes mellitus without complications; I10 Essential (primary) hypertension

== ENCOUNTER → 2024-06-01 11:15 | Outpatient (BNVA) | payer OTHER, SELFPAY | PROVIDERS: PCP Internal Medicine; Visit Provider Internal Medicine | DX: Z00.00 Encounter for general adult medical examination without abnormal findings (principal); E10.9 Type 1 diabetes mellitus without complications; I10 Essential (primary) hypertension | CPT/HCPCS: 96127 ==

== ENCOUNTER 2024-06-01 12:14 | Outpatient (REF) | payer OTHER, SELFPAY ==
[2024-06-01 14:08] LABS: Appearance Urine Clear; Color Urine Yellow; Glucose Urine UA Negative (Negative); Leukocyte Esterase Urine Large (3+) (Negative); Nitrite Urine Negative (Negative); PH 6.5 (5.0-9.0); Specific Gravity - Urine <= 1.005 (1.005-1.025); UMIC TRIGGER UACC YES; Urine Blood Trace (Negative); Urine Ketones Negative (Negative); Urine Protein Negative (Neg-Trace)
[2024-06-01 14:08] LABS: MANUAL DIFF FLAG NO
[2024-06-01 14:13] LABS: Bacteria Urine 4+ (None Seen); Hyaline Casts Urine 0-2 /LPF (0-2); RBC Urine 0-2 /HPF (0-2); UACC Culture Trigger YES; WBC Urine >50 /HPF (0-5)
[2024-06-01 14:17] LABS: Basophils Percent Auto 0.6 % (0-2); Eosinophils Absolute Auto 0.2 X10*3/uL (0.0-0.4); Eosinophils Percent Auto 2.8 % (0-4); Hematocrit 40.5 % (37.0-47.0); Imm Gran Abs Auto 0.01 X10*3/uL (0.00-0.03); Imm Gran Pct Auto 0.2 % (0.0-0.4); Lymphocytes Absolute Auto 1.3 X10*3/uL (1.2-4.9); Lymphocytes Percent Auto 20.4 % (20-40); Mean Corpuscular HGB Conc 34.6 g/dl (31.0-35.0); Mean Corpuscular Hemoglobin 30.8 pg (27.0-33.0); Mean Corpuscular Volume 89.2 fL (80.0-98.0); Mean Platelet Volume 10.2 fL (9.4-12.3); Monocytes Absolute Auto 0.5 X10*3/uL (0.1-1.2); Monocytes Percent Auto 8.4 % (2-11); Neutrophils Absolute Auto 4.3 x10*3/uL (2.0-8.3); Neutrophils Percent Auto 67.6 % (45-73); Platelet Count 209 X10*3/uL (160-400); Red Blood Count 4.54 X10*6/uL (4.20-5.50); Red Cell Distribution Width 12.9 % (11.0-16.0); White Blood Count 6.3 X10*3/uL (4.8-10.8)
[2024-06-01 14:47] LABS: Alanine Aminotransferase 15 U/L (0-31); Alkaline Phosphatase 75 U/L (39-117); Anion Gap 10 (12-20); Aspartate Amino Transferase 20 U/L (5-31); Bilirubin Total 0.9 mg/dL (0.0-1.0); Blood Urea Nitrogen 14 mg/dL (9-16); Calcium 9.6 mg/dL (8.4-10.2); Carbon Dioxide 29 mmol/L (22-29); Chloride 105 mmol/L (96-108); Cholesterol 249 mg/dL (<200); Estimated Glomerular Filt Rate 55; Glucose Random 106 mg/dL (60-115); HDL Cholesterol 56 mg/dL (>40); LDL Cholesterol Calculated 169 mg/dL (<100); Potassium 3.7 mmol/L (3.3-5.1); Sodium 140 mmol/L (135-145); Triglycerides 123 mg/dL (<150)
[2024-06-01 14:50] LABS: TSH reflex Free T4 0.66 uIU/mL (0.32-4.0)
== END 2024-06-01 12:15 | disposition home or self-care (01) ==
LOC: HO.WFDLDS 12:14
PROVIDERS: Visit Provider Internal Medicine
DX: I10 Essential (primary) hypertension (principal); E10.9 Type 1 diabetes mellitus without complications; K21.9 Gastro-esophageal reflux disease without esophagitis; Z13.0 Encounter for screening for diseases of the blood and blood-forming organs and certain disorders involving the immune mechanism; R30.0 Dysuria
CPT/HCPCS: 36415; 80053; 80061; 81001; 84443; 85025; 87086; 87088; 87186

== ENCOUNTER 2024-06-16 08:37 | Outpatient (AMB) | payer OTHER, SELFPAY ==
--- NOTE | 2024-06-16 08:38 | MHC.OFFVIS ---
Vital Signs 06/16/24 08:44 Height 5 ft 4 in Weight 253 lb 15.56 oz BMI 43.6 BP 114/58 L Blood Pressure Location Rt brachial Position Sitting Pulse 64 Pulse Source Pulse Oximeter Pulse Oximetry (%) 98 Oxygen Delivery Method Room Air Intake Visit Reasons: 3 month follow up Intake Note: Relevant Flags or Indicators ? Requires Automatic Trimming Sewer? N Aleyda presents in office today for a scheduled 3 mos FUV. CC; Since last visit; labs ordered ? done. Rx ordered ? yes; pantoprazole. Diagnostics/images ordered ? UGIS w/ SB -- done. Relevant GI Sx as reported per pt? Reflux ? Bloating ? Abdominal distention ? Hx of any recent surgeries? None Automatic Trimming Sewer Required: No Allergies fentanyl Allergy (Severe, Verified 03/30/24 08:56) Hypotension fluorescein Allergy (Severe, Verified 06/16/24 08:41) Anaphylaxis latex Allergy (Severe, Verified 03/30/24 08:56) Rash Sulfa (Sulfonamide Antibiotics) Allergy (Intermediate, Verified 06/16/24 08:41) Itching acetaminophen [From Tylenol] Allergy (Mild, Verified 03/30/24 08:56) Nausea dimenhydrinate [From Dramamine] Adverse Reaction (Severe, Verified 03/30/24 08:56) Nausea and Vomiting aspirin [From Excedrin Extra Strength] Adverse Reaction (Mild, Verified 06/16/24 08:41) Nausea caffeine [From Excedrin Extra Strength] Adverse Reaction (Mild, Verified 06/16/24 08:41) Nausea anesthesia Allergy (Severe, Uncoded 03/30/24 08:56) Hypotension HPI HPI 3 month follow up: Details: LAST VISIT GERD (gastroesophageal reflux disease) Plan Patient will start taking pantoprazole daily. Will send her for upper GI series to evaluate her reflux. Avoid dietary triggers and late night snacking. Staying upright for minimum 3 hours after meals discussed with patient. Patient will follow-up in 3 months, sooner on as needed basis. She is agreeable to this plan and verbalizes understanding of instructions. She was given the opportunity to ask questions and all questions answered. ? Thank you for allowing me to participate in her care Orders Orders [place] upper GI small bowel 03/16/24 K21.9 Vitamin B12 and Folate 03/16/24 R19.7 Transglutaminase IgA 03/16/24 R10.9 Lipase 03/16/24 R10.9 Vitamin D 25-OH (D2 and D3) 03/16/24 E55.9 Transglutaminase Ab IgG 03/16/24 R10.9 Referrals Gastroenterology Referral K21.9, J39.8 Medications New pantoprazole 20 mg PO DAILY 90 tabs 1RF TODAY'S VISIT Patient is here today for follow-up. Patient reports ongoing symptoms of acid reflux depending on what she eats. Patient also reports to have epigastric pain, burning and bloating. Patient often feels her abdomen is distended. Upper GI series done and shows moderate reflux with disorganized esophageal peristalsis nonobstructing Schatzki ring and moderate hiatal hernia. Patient does not want to go for upper endoscopy yet as she would like to get her records [place] GI [place]. Patient will fill out paperwork so we can fax it and requested. Patient reports that overall she has been doing well. Reports that she is moving her bowels without any issues. Denies melena, hematochezia, unintentional weight loss or ribbon like stools. Patient follows with endocrinology on regular basis. Patient states that her blood sugars are under control. Patient says that she had Kinyarwanda muffin and on an butter for breakfast. Patient reports bloating almost after every meal. Denies dyspepsia, dysphagia or odynophagia. [facility] Medical History Screening for deficiency anemia HAYDEE (obstructive sleep apnea) Tracheomalacia GERD (gastroesophageal reflux disease) Insulin long-term use Primary hypertension Type 1 diabetes Surgical History History of vitrectomy History of cataract surgery History of carpal tunnel release History of partial hysterectomy History of bilateral breast reduction surgery Previous section Family History Other Family history unknown Social History Household Members: Family Housing: House Are you a primary pediatric acute care unit nurse to a significant other at home: No Do you presently have visiting nurse or other home services: No 75 years or older and lives alone: No Alcohol intake: never Patient Tobacco Use Status: Never used Tobacco e-Cigarette/Vaping Use: Never Used service: No Current occupational status: retired Cognitive needs: No Hearing needs: No Vision needs: No Review of Systems Const Denies weight gain and Denies weight loss ENT Reports no additional complaints, Reports Normal hearing present, Denies dysphagia and Denies odynophagia Card Reports no additional complaints Resp Reports no additional complaints GI Denies abdominal pain, Denies belching, Denies melena, Denies bloating, Denies change in bowel habits, Denies dysphagia, Denies excessive flatus, Denies dyspepsia, Denies heartburn, Denies diarrhea, Denies loose stools, Denies nausea, Denies odynophagia and Denies vomiting Musc Reports no additional complaints Neuro Reports no additional complaints and Reports Normal hearing present Psych Reports no additional complaints Endo Reports no additional complaints Physical Exam Vital Signs: Last Vital Signs Pulse 64 06/16/24 08:44 BP 114/58 L 06/16/24 08:44 Pulse Ox 98 06/16/24 08:44 Oxygen Delivery Method Room Air 06/16/24 08:44 BMI result Body Mass Index 43.6 Const General: cooperative, healthy appearing, comfortable, no acute distress and alert Nutritional Appearance: obese Orientation/consciousness: patient oriented x3 Limitations: no limitations HEENT Head: Yes normal to inspection, Yes normocephalic and Yes atraumatic Ears: hearing grossly normal bilaterally and external ears normal Eyes General: appearance normal, both eyes and all related structures Eyelids: Yes eyelids normal Sclerae: sclerae normal EOM: EOMs intact bilaterally Neck Neck: Yes normal visual inspection and Yes no lymphadenopathy Lymphatic: no lymphadenopathy noted Chest Chest palpation & inspection: normal inspection of the chest Resp Effort & Inspection: normal respiratory effort, able to speak in complete sentences, no audible wheezes, no cough, no stridor, not tachypneic, no tripod positioning and no use of accessory muscles Auscultation: clear to auscultation bilaterally Cardio Jugular venous distension: no JVD Rate: regular rate Rhythm: regular rhythm Skin Other: warm, dry General skin exam: no rashes or lesions noted Neuro General: patient oriented x3 Cranial nerves: Yes Normal hearing present Cognition (Neuro): normal cognition Gait exam (Neuro): Normal gait present Extrem General: Yes normal to inspection, Yes capillary refill normal, Yes no clubbing, cyanosis or edema and Yes no pedal edema Psych Appearance: grossly normal and well kempt Speech and movement: Normal speech and movement present and Clear speech present Affect: normal affect Attitude: cooperative Thought process: Normal thought process present Thought content: Normal thought content present Insight: Good insight present (Psych) Judgement: Good judgement present (Psych) Results Reviewed Results Reviewed: UPPER GI SERIES IMPRESSION: 1. Moderately disorganized esophageal peristalsis. 2. Nonobstructing Schatzki's ring. 3. Moderate-sized type I hiatal hernia with severe gastroesophageal reflux. There is a lateral diverticulum noted in the hiatal hernia. 4. Somewhat rapid transit of the barium column, with the right colon opacified within 30 minutes. Etiology is unclear. Assessment & Plan Assessment & Plan (1) GERD (gastroesophageal reflux disease): Code(s): K21.9 - Gastro-esophageal reflux disease without esophagitis Category: Medical Qualifiers: Esophagitis presence: esophagitis presence not specified Qualified Code(s): K21.9 - Gastro-esophageal reflux disease without esophagitis (2) Hiatal hernia: Code(s): K44.9 - Diaphragmatic hernia without obstruction or gangrene Plan We will get medical records from her previous GI with all the endoscopies and testing that was done. Will hold off on ordering EGD at this time. I did discuss with patient that she might need a hiatal hernia repair, however patient wants to wait and see if we can compare with previous testing to see if her hernia got worse or not. Continue taking pantoprazole daily. Avoid dietary triggers and late night snacking. Staying upright for minimum 3 hours after meals discussed with patient patient can continue berberine supplement for the next 3 months and stop after that, should not take more than 2000 mg daily. Will we do lab work at her next visit liver profile with kidney function studies. Patient is agreeable to plan of care and verbalizes understanding of instructions. She was given the opportunity to ask questions and all questions answered. Thank you for allowing me to participate in her care Coding Level of Care Code Est Pt Level 4 (93267) Diagnoses Gastroesophageal reflux disease, unspecified whether esophagitis present K21.9 Esophagitis presence: esophagitis presence not specified Hiatal hernia K44.9 Time Spent (min) 35 Comment 20 minutes spent with patient and additional 15 minutes spent reviewing her records
[2024-06-16 08:44] VITALS: BP 114/58; PULSE 64; O2SAT 98; BMI 43.6
== END 2024-06-16 09:24 | disposition home or self-care (01) ==
PROVIDERS: PCP Internal Medicine; Visit Provider Nurse Practitioner Family
DX: K21.9 Gastro-esophageal reflux disease without esophagitis (principal); K44.9 Diaphragmatic hernia without obstruction or gangrene
CPT/HCPCS: 99214

== ENCOUNTER → 2024-06-16 08:37 | Outpatient (BNVA) | payer OTHER, SELFPAY | PROVIDERS: PCP Internal Medicine; Visit Provider Nurse Practitioner Family ==

== ENCOUNTER 2024-07-27 09:08 | Outpatient (REF) | payer OTHER, SELFPAY | END 2024-07-27 09:09 | disposition home or self-care (01) | LOC: HO.CT 09:08 | PROVIDERS: PCP Internal Medicine; Visit Provider Nurse Practitioner Family | DX: R91.8 Other nonspecific abnormal finding of lung field (principal) | CPT/HCPCS: 71250 ==

== ENCOUNTER → 2024-07-27 09:11 | Outpatient (BNV) | payer OTHER, SELFPAY | PROVIDERS: PCP Internal Medicine; Visit Provider Radiology Diagnostic Radiology | DX: R91.1 Solitary pulmonary nodule (principal); I25.10 Atherosclerotic heart disease of native coronary artery without angina pectoris | CPT/HCPCS: 71250 ==

== ENCOUNTER 2024-07-30 08:21 | Outpatient (AMB) | payer OTHER, SELFPAY ==
--- NOTE | 2024-07-30 08:37 | A.OFFPC_ITS ---
Vital Signs 07/30/24 08:54 Height 5 ft 4 in Weight 258 lb 6 oz BMI 44.3 BP 110/64 Blood Pressure Location Lt brachial Position Sitting Pulse 59 Pulse Source Pulse Oximeter Pulse Oximetry (%) 97 Oxygen Delivery Method Room Air Intake Visit Reasons: Annual Intake Note: Follow up. Had CT of the lung done through [facility], next appt with them is 08/03/24. Requesting year supply of medications incase her insurance changes. 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: No Allergies fentanyl Allergy (Severe, Verified 07/30/24 08:39) Hypotension fluorescein Allergy (Severe, Verified 07/30/24 08:39) Anaphylaxis latex Allergy (Severe, Verified 07/30/24 08:39) Rash Sulfa (Sulfonamide Antibiotics) Allergy (Intermediate, Verified 07/30/24 08:39) Itching acetaminophen [From Tylenol] Allergy (Mild, Verified 07/30/24 08:39) Nausea dimenhydrinate [From Dramamine] Adverse Reaction (Severe, Verified 07/30/24 08:39) Nausea and Vomiting aspirin [From Excedrin Extra Strength] Adverse Reaction (Mild, Verified 07/30/24 08:39) Nausea caffeine [From Excedrin Extra Strength] Adverse Reaction (Mild, Verified 07/30/24 08:39) Nausea anesthesia Allergy (Severe, Uncoded 07/30/24 08:39) Hypotension Tobacco use date assessed: 12/12/23 Dental Screening Dental Screen Date: 12/12/23 HPI HPI Comments History of Present Illness Details 63 y/o female with a past medical histor y of type 1 diabetes, hypertension, GERD, HAYDEE, presenting for follow up Very stressed today. She may no longer be able to follow at [facility] due to insurance issues. Needs refills in case that happens Endocrine-Type [address] Rivas. CV: Blood pressure is well controlled on omesartan/hctz. Rsp: Following with pulmonary. She was having a lot of breathing issues when she first moved here from [place]. This has stabilized GERD: Stable on pantoprazole. Tracheomalacia. She saw gastroenterology in February Colonoscopy 2022 Mammo UTD Follows with ob gyn physician assistant [facility] ROS CONSTITUTIONAL: Denies weight loss, fever and chills. HEENT: Denies changes in vision and hearing. RESPIRATORY: Denies SOB and cough. CV: Denies palpitations and CP GI: Denies abdominal pain, nausea, vomiting and diarrhea. : Intermittent frequency, dysuria MSK: Denies new myalgia and joint pain. SKIN: Denies rash and pruritus. NEUROLOGICAL: Denies headache PSYCHIATRIC: Denies recent changes in mood. PHYSICAL EXAM: GENERAL: Alert and oriented x 3. NAD EYES: EOMI. Anicteric. HENT: Moist mucous membranes. No scleral icterus. No cervical lymphadenopathy. LUNGS: Clear to auscultation bilaterally. CARDIOVASCULAR: Regular rate and rhythm. No murmur. No JVD. ABDOMEN: Soft, non-tender +bs EXTREMITIES: No edema. Non-tender. SKIN: No rashes or lesions. Warm. NEUROLOGIC: No focal neurological deficits. CN II-XII grossly intact PSYCHIATRIC: Cooperative. Appropriate mood and affect [facility] Medical History Screening for deficiency anemia HAYDEE (obstructive sleep apnea) Tracheomalacia GERD (gastroesophageal reflux disease) Insulin long-term use Primary hypertension Type 1 diabetes Surgical History History of vitrectomy History of cataract surgery History of carpal tunnel release History of partial hysterectomy History of bilateral breast reduction surgery Previous section Family History Other Family history unknown Social History Household Members: Family Housing: House Are you a primary care transitions nurse to a significant other at home: No Do you presently have visiting nurse or other home services: No Alcohol intake: never Patient Tobacco Use Status: Never used Tobacco e-Cigarette/Vaping Use: Never Used service: No Current occupational status: retired Cognitive needs: No Hearing needs: No Vision needs: No Questionnaire Thrive Questionnaire Date Thrive assessed: 05/25/24 I am a: Patient What is your living situation today?: I have a steady place to live Within the past 12 months, did the food you bought not last and you didn't have the money to get more?: I choose not to answer this question Within the past 12 months, did you worry whether your food would run out before you got money to buy more?: I choose not to answer this question Do you have trouble paying for medicines?: I choose not to answer this question Do you have trouble getting transportation to medical appointments?: I choose not to answer this question Do you have trouble paying your heating and electricity bill?: I choose not to answer this question Do you have trouble taking care of your child, family member or friend?: I choose not to answer this question Do you have trouble with day-to-day activities such as bathing, preparing meals, shopping, managing finances, etc.?: No Are you currently unemployed and looking for a job?: No Are you interested in more education?: No Please select the resources that you would like help with: None Currently or been in a relationship where the following occur: No concerns reported THRIVE Score: 0 RODRIGO-7 AMB Questionnaire RODRIGO-7 Date RODRIGO - 7 assessed: 06/01/24 Source: Developed by Drs. Tremayne Borrego, Jigna Turk, Jason Stephen and colleagues, with an educational mikayla from [email or web address]. Physical exam (Primary Care) Vital Signs: Last Vital Signs Pulse 59 07/30/24 08:54 BP 110/64 07/30/24 08:54 Pulse Ox 97 07/30/24 08:54 Oxygen Delivery Method Room Air 07/30/24 08:54 BMI result Body Mass Index 44.3 Tobacco/Smoking Status: Tobacco use Status Tobacco use date assessed 12/12/23 07/30/24 08:38 Patient Tobacco Use Status Never used Tobacco 07/30/24 08:38 e-Cigarette/Vaping Use Never Used 07/30/24 08:38 Thrive Assessment: Date of Thrive Assessment Date Thrive assessed 05/25/24 07/30/24 08:38 Currently or been in a relationship where the following occur: No concerns reported Coding Level of Care Code Est Pt Level 4 (95653) Diagnoses Type 1 diabetes mellitus without complication E10.9 Diabetes mellitus complication status: without complication Moderate persistent asthma without complication J45.40 Asthma severity: moderate Asthma persistence: persistent Asthma complication type: uncomplicated Dysuria R30.0 Assessment & Plan Assessment & Plan (1) Type 1 diabetes: Comment: Controlled. Code(s): E10.9 - Type 1 diabetes mellitus without complications Category: Medical Qualifiers: Diabetes mellitus complication status: without complication Qualified Code(s): E10.9 - Type 1 diabetes mellitus without complications Plan: controlled on current medications Continue endocrine follow up (2) Asthma: Code(s): J45.909 - Unspecified asthma, uncomplicated Category: Medical Qualifiers: Asthma severity: moderate Asthma persistence: persistent Asthma complication type: uncomplicated Qualified Code(s): J45.40 - Moderate persistent asthma, uncomplicated Plan: Stable on current medications. Refilled Continues to see pulmonary (3) Dysuria: Code(s): R30.0 - Dysuria Category: Medical Plan: Urine test ordered Abx sent Orders: Orders UA CC w/rflx Micro + Cult 07/30/24 R30.0 - Dysuria Medications: New azithromycin For 250 mg dose pack: take 500 mg today (day 1), then 250 mg for 4 days (days 2-5) orally; 6 tabs 0RF nitrofurantoin macrocrystal must administer with a meal/food 100 mg PO BID PRN 14 caps 0RF uti 7 days codeine-guaifenesin 10-100 mg/5 mL 10 mL PO Q4-6H PRN 200 mL 1RF cough prochlorperazine maleate (Compazine) 10 mg PO Q8H PRN 30 tabs 3RF nausea and vomiting doxycycline monohydrate 100 mg PO BID 20 tabs 0RF Baqsimi 3 mg/actuation (glucagon) 1 inhaler 3 mg intranasal ONCE PRN 1 ea 3RF hypoglycemia 90 days NS fluocinonide 0.05% 1 appl topical BID 60 grams 3RF Changed From cyclobenzaprine 5 mg PO BEDTIME 30 days PRN 30 tabs 0RF muscle spasm To cyclobenzaprine 5 mg PO BEDTIME PRN 90 tabs 3RF muscle spasm 90 days Refilled albuterol sulfate 90 mcg/actuation 2 puffs inhalation Q4-6H PRN 1 ea 3RF shortness of breath or wheezing olmesartan-hydrochlorothiazide 40-25 mg 1 tab PO DAILY 90 tabs 3RF 90 days fluticasone propion-salmeterol 250-50 mcg/dose (Wixela Inhub) 1 inh inhalation Q12H 180 ea 3RF ondansetron 4 mg PO Q8H PRN 60 tabs 4RF nausea and vomiting 90 days
[2024-07-30 08:54] VITALS: BP 110/64; PULSE 59; O2SAT 97; BMI 44.3
== END 2024-07-30 09:25 | disposition home or self-care (01) ==
PROVIDERS: PCP Internal Medicine; Visit Provider Internal Medicine
DX: E10.9 Type 1 diabetes mellitus without complications (principal); J45.40 Moderate persistent asthma, uncomplicated; R30.0 Dysuria

== ENCOUNTER → 2024-07-30 08:21 | Outpatient (BNVA) | payer OTHER, SELFPAY | PROVIDERS: PCP Internal Medicine; Visit Provider Internal Medicine ==

== ENCOUNTER 2024-07-30 09:47 | Outpatient (REF) | payer OTHER, SELFPAY ==
[2024-07-30 14:13] LABS: Appearance Urine Cloudy; Color Urine Yellow; Glucose Urine UA Negative (Negative); Leukocyte Esterase Urine Moderate (2+) (Negative); Nitrite Urine Negative (Negative); PH 5.5 (5.0-9.0); UMIC TRIGGER UACC YES; Urine Blood Negative (Negative); Urine Ketones Negative (Negative); Urine Protein Negative (Neg-Trace)
[2024-07-30 14:18] LABS: Bacteria Urine 2+ (None Seen); Hyaline Casts Urine 0-2 /LPF (0-2); RBC Urine 0-2 /HPF (0-2); UACC Culture Trigger YES; WBC Urine 21-50 /HPF (0-5)
== END 2024-07-30 09:48 | disposition home or self-care (01) ==
LOC: HO.WFDLDS 09:47
PROVIDERS: Visit Provider Internal Medicine
DX: R30.0 Dysuria (principal)
CPT/HCPCS: 81001; 87086

== ENCOUNTER 2024-08-03 08:48 | Outpatient (AMB) | payer OTHER, SELFPAY ==
--- NOTE | 2024-08-03 08:32 | A.OFFVIS_ITS ---
Vital Signs 08/03/24 08:50 Height 5 ft 4 in Weight 262 lb BMI 45.0 BP 120/58 L Blood Pressure Location Lt brachial Position Sitting Pulse 67 Pulse Source Pulse Oximeter Pulse Oximetry (%) 97 Oxygen Delivery Method Room Air Intake Visit Reasons: FU/ Overnight Oximetry Allergies fentanyl Allergy (Severe, Verified 08/03/24 08:55) Hypotension fluorescein Allergy (Severe, Verified 08/03/24 08:55) Anaphylaxis latex Allergy (Severe, Verified 08/03/24 08:55) Rash Sulfa (Sulfonamide Antibiotics) Allergy (Intermediate, Verified 08/03/24 08:55) Itching acetaminophen [From Tylenol] Allergy (Mild, Verified 08/03/24 08:55) Nausea dimenhydrinate [From Dramamine] Adverse Reaction (Severe, Verified 08/03/24 08:55) Nausea and Vomiting aspirin [From Excedrin Extra Strength] Adverse Reaction (Mild, Verified 08/03/24 08:55) Nausea caffeine [From Excedrin Extra Strength] Adverse Reaction (Mild, Verified 08/03/24 08:55) Nausea anesthesia Allergy (Severe, Uncoded 08/03/24 08:55) Hypotension HPI HPI FU/ Overnight Oximetry: Details: Aleyda is a pleasant 63 year old female, never smoker, with underlying asthma, HAYDEE on CPAP, tracheomalacia, vocal cord dysfunction, DM I and GERD. At baseline, she reports moderate control of respiratory symptoms however has not been using Advair 115 mcg or albuterol MDI. She continues to report intermittent wheezing and dyspnea on exertion. She reports continuous use of CPAP therapy with >80% compliance with minimal leaks, average AHI <4. She denies any visits to urgent care or hospitalizations since the last visit. [facility] Medical History Screening for deficiency anemia HAYDEE (obstructive sleep apnea) Tracheomalacia GERD (gastroesophageal reflux disease) Insulin long-term use Primary hypertension Type 1 diabetes Surgical History History of vitrectomy History of cataract surgery History of carpal tunnel release History of partial hysterectomy History of bilateral breast reduction surgery Previous section Family History Other Family history unknown Social History Household Members: Family Housing: House Are you a primary date night caregiver to a significant other at home: No Do you presently have visiting nurse or other home services: No 75 years or older and lives alone: No Alcohol intake: never Patient Tobacco Use Status: Never used Tobacco e-Cigarette/Vaping Use: Never Used service: No Current occupational status: retired Cognitive needs: No Hearing needs: No Vision needs: No Review of Systems Const Denies chills, Denies excessive sweating, Denies fever(s), Denies headache(s) and Denies night sweats Eyes Denies dry eyes, Denies irritation and Denies itchy eyes ENT Reports Normal hearing present, Denies headache(s), Denies nasal congestion, Denies nasal discharge, Denies post nasal drip and Denies sore throat Card Denies chest pain, Denies chest pain at rest, Denies chest pain with activity, Denies claudication, Denies leg edema, Denies dyspnea, Reports dyspnea on exertion, Denies orthopnea and Denies paroxysmal nocturnal dyspnea Resp Denies chest congestion, Denies excessive phlegm production, Denies pain on inspiration, Denies pain with cough, Denies dyspnea, Reports dyspnea on exertion, Denies stridor and Denies wheezing Musc Denies myalgias Neuro Reports Normal hearing present and Denies headache(s) Endo Denies excessive sweating Tim/Lymph Denies lymphadenopathy Aller/Immun Denies itchy eyes, Denies seasonal rhinorrhea and Denies wheezing Physical Exam Vital Signs: Last Vital Signs Pulse 67 08/03/24 08:50 BP 120/58 L 08/03/24 08:50 Pulse Ox 97 08/03/24 08:50 Oxygen Delivery Method Room Air 08/03/24 08:50 BMI result Body Mass Index 45.0 Const General: cooperative, healthy appearing, comfortable, no acute distress, well developed and alert Nutritional Appearance: obese Orientation/consciousness: patient oriented x3 Limitations: no limitations HEENT Head: Yes normal to inspection, Yes normocephalic and Yes atraumatic Ears: hearing grossly normal bilaterally and external ears normal Eyes General: appearance normal, both eyes and all related structures Eyelids: Yes eyelids normal Sclerae: sclerae normal EOM: EOMs intact bilaterally Neck Neck: Yes normal visual inspection and Yes no lymphadenopathy Lymphatic: no lymphadenopathy noted Chest Chest palpation & inspection: normal inspection of the chest Resp Effort & Inspection: normal respiratory effort, able to speak in complete sentences, no audible wheezes, no cough, no stridor, not tachypneic, no tripod positioning and no use of accessory muscles Auscultation: clear to auscultation bilaterally Cardio Jugular venous distension: no JVD Rate: regular rate Rhythm: regular rhythm Skin Other: warm, dry General skin exam: no rashes or lesions noted Neuro General: patient oriented x3 Cranial nerves: Yes Normal hearing present Cognition (Neuro): normal cognition Gait exam (Neuro): Normal gait present Extrem General: Yes normal to inspection, Yes capillary refill normal, Yes no clubbing, cyanosis or edema and Yes no pedal edema Psych Appearance: grossly normal and well kempt Speech and movement: Normal speech and movement present and Clear speech present Affect: normal affect Attitude: cooperative Thought process: Normal thought process present Thought content: Normal thought content present Insight: Good insight present (Psych) Judgement: Good judgement present (Psych) Assessment & Plan Assessment & Plan (1) Asthma: Code(s): J45.909 - Unspecified asthma, uncomplicated Category: Medical Qualifiers: Asthma complication type: uncomplicated Asthma persistence: persistent Asthma severity: moderate Qualified Code(s): J45.40 - Moderate persistent asthma, uncomplicated (2) HAYDEE (obstructive sleep apnea): Code(s): G47.33 - Obstructive sleep apnea (adult) (pediatric) Category: Medical (3) Tracheomalacia: Code(s): J39.8 - Other specified diseases of upper respiratory tract Category: Medical (4) GERD (gastroesophageal reflux disease): Code(s): K21.9 - Gastro-esophageal reflux disease without esophagitis Category: Medical Qualifiers: Esophagitis presence: esophagitis presence not specified Qualified Code(s): K21.9 - Gastro-esophageal reflux disease without esophagitis (5) Multiple pulmonary nodules: Code(s): R91.8 - Other nonspecific abnormal finding of lung field Category: Medical Plan Aleyda reports nightly use of CPAP therapy, which is reflected in Shout ranjith. Advised to continue current settings at this time. She noted her respiratory symptoms are moderately controlled without medications however encouraged patient to start using ICS/LABA consistently. Chest CT performed however not officially read by radiology, will call patient if any concerning findings. Prior chest CT revealed tracheomalacia as well as multiple stable pulmonary nodules.All questions were answered and patient is in agreement of plan. Will follow up in 6 months or sooner if needed. Coding Level of Care Code Est Pt Level 4 (34984) Diagnoses Moderate persistent asthma without complication J45.40 Asthma complication type: uncomplicated Asthma persistence: persistent Asthma severity: moderate HAYDEE (obstructive sleep apnea) G47.33 Tracheomalacia J39.8 Gastroesophageal reflux disease, unspecified whether esophagitis present K21.9 Esophagitis presence: esophagitis presence not specified Multiple pulmonary nodules R91.8
[2024-08-03 08:50] VITALS: BP 120/58; PULSE 67; O2SAT 97; BMI 45.0
== END 2024-08-03 09:41 | disposition home or self-care (01) ==
PROVIDERS: PCP Internal Medicine; Visit Provider Nurse Practitioner Family
DX: J45.40 Moderate persistent asthma, uncomplicated (principal); G47.33 Obstructive sleep apnea (adult) (pediatric); J39.8 Other specified diseases of upper respiratory tract; K21.9 Gastro-esophageal reflux disease without esophagitis; R91.8 Other nonspecific abnormal finding of lung field
CPT/HCPCS: 99214

== ENCOUNTER → 2024-08-03 08:48 | Outpatient (BNVA) | payer OTHER, SELFPAY | PROVIDERS: PCP Internal Medicine; Visit Provider Nurse Practitioner Family | DX: Z91.09 Other allergy status, other than to drugs and biological substances (principal) ==

== ENCOUNTER 2024-09-22 12:41 | Outpatient (AMB) | payer OTHER, SELFPAY ==
--- NOTE | 2024-09-22 12:58 | A.OFFPC_ITS ---
Vital Signs 09/22/24 13:05 Height 5 ft 4 in Weight 259 lb BMI 44.5 BP 134/64 Blood Pressure Location Lt brachial Position Sitting Pulse 83 Pulse Source Pulse Oximeter Pulse Oximetry (%) 96 Oxygen Delivery Method Room Air Intake Visit Reasons: Neck pain Intake Note: Neck pain. Right shoulder pain. Took left over prednisone, along with tylenyol for the pain this morning. Hydrodynamics Teacher Required: No Allergies fentanyl Allergy (Severe, Verified 09/22/24 12:59) Hypotension fluorescein Allergy (Severe, Verified 09/22/24 12:59) Anaphylaxis latex Allergy (Severe, Verified 09/22/24 12:59) Rash Sulfa (Sulfonamide Antibiotics) Allergy (Intermediate, Verified 09/22/24 12:59) Itching acetaminophen [From Tylenol] Allergy (Mild, Verified 09/22/24 12:59) Nausea dimenhydrinate [From Dramamine] Adverse Reaction (Severe, Verified 09/22/24 12:59) Nausea and Vomiting aspirin [From Excedrin Extra Strength] Adverse Reaction (Mild, Verified 09/22/24 12:59) Nausea caffeine [From Excedrin Extra Strength] Adverse Reaction (Mild, Verified 09/22/24 12:59) Nausea anesthesia Allergy (Severe, Uncoded 09/22/24 12:59) Hypotension Medication List - Last Reconciled 09/22/24 by Cassi De La Cruz PA-C acetaminophen (Tylenol) 650 mg PO Q6H PRN albuterol sulfate 90 mcg/actuation 2 puffs inhalation Q4-6H PRN alcohol swabs (BD Alcohol Swabs) pad topical Baqsimi 3 mg/actuation (glucagon) 3 mg intranasal ONCE PRN 90 days NS blood sugar diagnostic (JOY[employer] Interaction [employer] and TechnologyTouch Verio test strips) As directed blood-glucose meter,continuous (Dexcom G6 Licsw) As directed blood-glucose sensor (Dexcom G6 Sensor device) As directed blood-glucose transmitter (Dexcom G6 Transmitter device) As directed cyclobenzaprine 5 mg PO BEDTIME PRN 90 days fluocinonide 0.05% 1 appl topical BID fluticasone propion-salmeterol 250-50 mcg/dose (Wixela Inhub) 1 inh inhalation Q12H insulin aspart U-100 (Novolog FlexPen U-100 Insulin aspart) 200 units subcutaneously Every two days; (2-2.5 days) insulin degludec (Tresiba FlexTouch U-200 insulin) 60 units subcut BEDTIME insulin pump cart,automated,BT (Omnipod 5 G6 Pods (Gen 5) subcutaneous cartridge) 200 units every two day olmesartan-hydrochlorothiazide 40-25 mg 1 tab PO DAILY 90 days ondansetron 4 mg PO Q8H PRN 90 days pantoprazole 20 mg PO DAILY pen needle, diabetic (BD Jannette 2nd Gen Pen Needle) As directed prochlorperazine maleate (Compazine) 10 mg PO Q8H PRN scopolamine base 1 patch transdermal Q3D PRN 90 days Tobacco use date assessed: 12/12/23 Dental Screening Dental Screen Date: 12/12/23 HPI Neck pain HPI Details Patient is a 64-year-old female with a significant past medical history of type 1 diabetes, hypertension, GERD, tracheomalacia, HAYDEE and asthma presenting today to the walk-in with complaints of neck pain. Musculoskeletal: States that her neck pain started 2 days ago. She states she did not do anything to her neck. She says that she just woke up with the pain in that it is mostly on the right side and it feels like a muscle spasm/not in her trapezius. It is worse with extension and lateral bending. She has full range of motion of her arm. No numbness, tingling or weakness. She states this has happened in the past and was given prednisone and cyclobenzaprine. She did take 40 mg of prednisone today which took the pain down. No chest pain or shortness on breath. CV: Blood pressure today in the office is 134/64. She is currently on olmesartan/hydrochlorothiazide 40/25 mg. Endo: She is on an insulin pump. The prednisone did increase her blood sugars. She has been adjusting her insulin. [facility] Medical History Screening for deficiency anemia HAYDEE (obstructive sleep apnea) Tracheomalacia GERD (gastroesophageal reflux disease) Insulin long-term use Primary hypertension Type 1 diabetes Surgical History History of vitrectomy History of cataract surgery History of carpal tunnel release History of partial hysterectomy History of bilateral breast reduction surgery Previous section Family History Other Family history unknown Social History Household Members: Family Housing: House Are you a primary floor care specialist to a significant other at home: No Do you presently have visiting nurse or other home services: No 75 years or older and lives alone: No Alcohol intake: never Patient Tobacco Use Status: Never used Tobacco e-Cigarette/Vaping Use: Never Used service: No Current occupational status: retired Cognitive needs: No Hearing needs: No Vision needs: No Questionnaire Thrive Questionnaire Date Thrive assessed: 09/22/24 I am a: Patient What is your living situation today?: I choose not to answer this question Within the past 12 months, did the food you bought not last and you didn't have the money to get more?: I choose not to answer this question Within the past 12 months, did you worry whether your food would run out before you got money to buy more?: I choose not to answer this question Do you have trouble paying for medicines?: I choose not to answer this question Do you have trouble getting transportation to medical appointments?: I choose not to answer this question Do you have trouble paying your heating and electricity bill?: I choose not to answer this question Do you have trouble taking care of your child, family member or friend?: I choose not to answer this question Do you have trouble with day-to-day activities such as bathing, preparing meals, shopping, managing finances, etc.?: I choose not to answer this question Are you currently unemployed and looking for a job?: I choose not to answer this question Are you interested in more education?: I choose not to answer this question Please select the resources that you would like help with: None Currently or been in a relationship where the following occur: I choose not to answer THRIVE Score: 0 AUDIT C Alcohol Use Questionnaire (AUDIT-C) 1. How often do you have a drink containing alcohol?: Never Total Score: 0 RODRIGO-7 AMB Questionnaire RODRIGO-7 Date RODRIGO - 7 assessed: 06/01/24 Feeling nervous, anxious, or on edge: 0 = Not at all Not being able to stop or control worryin = Not at all Worrying too much about different things: 0 = Not at all Trouble relaxin = Not at all Being so restless that it is hard to sit still: 0 = Not at all Becoming easily annoyed or irritable: 0 = Not at all Feeling afraid as if something awful might happen: 0 = Not at all Total RODRIGO-7 score (0-4 normal; 5-9 mild; 10-14 moderate; 15-21 severe): 0 Source: Developed by Drs. Tremayne Borrego, Jigna Turk, Jason Stephen and colleagues, with an educational mikayla from [employer]. Physical exam (Primary Care) Tobacco/Smoking Status: Tobacco use Status Tobacco use date assessed 12/12/23 07/30/24 08:38 Patient Tobacco Use Status Never used Tobacco 07/30/24 08:38 e-Cigarette/Vaping Use Never Used 07/30/24 08:38 Thrive Assessment: Date of Thrive Assessment Date Thrive assessed 09/22/24 09/22/24 10:53 Currently or been in a relationship where the following occur: I choose not to answer Const Orientation/consciousness: patient oriented x3 HENMT Ears: hearing grossly normal bilaterally Neck Thyroid: Thyroid normal Lymphatic: no lymphadenopathy noted Resp Auscultation: clear to auscultation bilaterally Cardio Rate: regular rate Rhythm: regular rhythm Heart sounds: S1 normal heart sound present and S2 normal heart sound present GI Inspection: Yes normal to inspection Palpation (GI): Soft to palpation and Other GI palpation findings present (nontender, no cva tenderness) Auscultation: normoactive bowel sounds Rectal Exam - Female: deferred Back/Spine/Pelvis Cervical Spine: cervical muscular tenderness, pain with cervical ROM (Pain with lateral bending and extension. No discomfort with flexion), No Cervical spine tenderness and No step off deformity Thoracic/Lumbar Spine: thoracic and lumbar spine normal to inspection and thoraco-lumbar ROM normal Skin General skin exam: no rashes or lesions noted Neuro Other: DTRs intact. Knotting Machine Operator strength 5/5 bilaterally. Sensation intact of the upper extremities. General: patient oriented x3, gait normal and no focal motor deficits Coding Level of Care Code Est Pt Level 4 (72391) Diagnoses Neck pain on right side M54.2 Type 1 diabetes mellitus without complication E10.9 Diabetes mellitus complication status: without complication Primary hypertension I10 Assessment & Plan Assessment & Plan (1) Neck pain on right side: Code(s): M54.2 - Cervicalgia Category: Medical Plan: X-ray ordered as this has happened a couple times recently. We will trial prednisone again as this has worked for in the past. Advised to use the muscle relaxant as needed. Encouraged her to apply ice and heat. Advised to monitor blood sugars closely given the prednisone. I will refer her to physical therapy. She will follow up if anything worsens or changes. (2) Type 1 diabetes: Comment: Controlled. Code(s): E10.9 - Type 1 diabetes mellitus without complications Category: Medical Qualifiers: Diabetes mellitus complication status: without complication Qualified Code(s): E10.9 - Type 1 diabetes mellitus without complications Plan: Continue to monitor blood sugars closely given prednisone. Did discuss that this can elevate her blood sugars. She is on an insulin pump and managed by endocrinology. (3) Primary hypertension: Comment: . Code(s): I10 - Essential (primary) hypertension Category: Medical Plan: WNL. Orders: Orders XR cervical spine 3V Today M54.2 - Cervicalgia PT Evaluation and Treatment Today M54.2 - Cervicalgia Medications: New prednisone take 3 tab po x 3 days, take 2 tab po x 3 days, 1 tab po x 3 days 18 tabs 0RF prednisone take 3 tab po x 3 days, take 2 tab po x 3 days, 1 tab po x 3 days 18 tabs 0RF
[2024-09-22 13:05] VITALS: BP 134/64; PULSE 83; O2SAT 96; BMI 44.5
--- OUTSIDE RECORDS SUMMARY | 2024-09-22 14:49 | XMS_ITS | Patient Health Record ---
Author Organization [facility] Billing Info Address [address] [place] [id number] Care Team Providers Care Pasteurizer Name Role Phone NADINE (RETIRED), JOHANNA Primary Care Provider Unavailable CHAD CASTREJON Unavailable [phone] Allergies Allergen (clinical drug ingredient) Drug/Non Drug Allergy documented on EMR Reaction Allergy Type Onset Date Status fentanyl Fentanyl Unknown Drug Allergy Active Latex Latex Unknown Allergy Active Substance with sulfonamide structure and antibacterial mechanism of action (substance) Sulfa Antibiotics Unknown Drug Allergy Active Reason For Referral No Information Medications Medication SIG (Take, Route, Frequency, Duration) Notes Start Date End Date Status Azithromycin 500 MG 1 tablet Orally Vy y for 14 day(s) 07/26/2022 Active NovoLog Active Olmesartan Medoxomil Active Tessalon Perles 100 MG 1 capsule as need ed Orally Three times a day for 10 day(s) 07/26/2022 Active Omeprazole 40 MG TAKE 1 CAPSULE ORALL Y ONCE A DAY BEFORE DINNER 30 DAY(S) for 90 Active Tussionex Pennkinetic ER 10-8 MG/5ML 5 ml as needed Orally every 12 hrs for 10 day(s) 06/14/2022 Active Tresiba Active Social History Tobacco Status: Question Answer Notes Patient is a non tobacco user Problems Problem Type SNOMED Code ICD Code Onset Dates Problem Status W/U Status Risk Notes Problem [id number] Chronic cough (R05.3) Active confirmed Plan Of Treatment No Information Insurance Providers Payer Name Payer Address Payer Phone Subscriber Number Group Number Insured Name Patient Relationship to Insured Coverage Start Date Coverage End Date [employer] PPO EPO [address] JUDY HERNANDEZ [id number] Aleyda Arcos Self - patient is the insured 2 0 Medical (General) History Surgical History Surgery Date(Month/Year) None
== END 2024-09-22 13:25 | disposition home or self-care (01) ==
PROVIDERS: PCP Internal Medicine; Visit Provider Physician Assistant
DX: M54.2 Cervicalgia (principal); E10.9 Type 1 diabetes mellitus without complications; I10 Essential (primary) hypertension

== ENCOUNTER 2024-09-28 10:20 | Outpatient (REF) | payer OTHER, SELFPAY ==
--- NOTE | ~2024-09-28 | XR_ITS ---
CLINICAL HISTORY: M54.2 - Cervicalgia 4 views cervical spine Comparison: None Findings: Normal vertebral body alignment. No acute fractures or dislocation. Moderate degenerative changes are present. No prevertebral soft tissue swelling. IMPRESSION: No acute findings. This document has been electronically signed by: Jeet Box MD, PHD on 09/29/2024 05:25:45
== END 2024-09-28 10:21 | disposition home or self-care (01) ==
LOC: HO.XRAY 10:20
PROVIDERS: PCP Internal Medicine; Visit Provider Physician Assistant
DX: M54.2 Cervicalgia (principal)
CPT/HCPCS: 72040

== ENCOUNTER → 2024-09-28 10:26 | Outpatient (BNV) | payer OTHER, SELFPAY | PROVIDERS: PCP Internal Medicine; Visit Provider General Practice | DX: M54.2 Cervicalgia (principal) | CPT/HCPCS: 72040 ==

== ENCOUNTER 2024-12-08 08:03 | Outpatient (AMB) | payer OTHER, SELFPAY ==
--- OUTSIDE RECORDS SUMMARY | 2024-12-08 08:07 | XMS_ITS | Patient Health Record ---
Author Organization [facility] Billing Info Address [address] [place] [id number] Care Team Providers Care Lithographic Proofer Name Role Phone NADINE (RETIRED), JOHANNA Primary Care Provider Unavailable CHAD CASTREJON Unavailable [phone] Allergies Allergen (clinical drug ingredient) Drug/Non Drug [...] Problem Status W/U Status Risk Notes Problem [id number] Chronic cough (R05.3) Active confirmed Plan Of Treatment No Information Insurance Providers Payer Name Payer Address Payer Phone Subscriber Number Group Number Insured Name Patient Relationship to Insured Coverage Start Date Coverage End Date [employer] PPO EPO [address] JUDY HERNANDEZ [id number] Aleyda Arcos Self - patient is the insured 2 0 Medical (General) History Surgical History Surgery Date(Month/Year) None
[2024-12-08 08:09] VITALS: BP 98/50; PULSE 66; O2SAT 96; BMI 45.3
--- NOTE | 2024-12-08 08:09 | A.OFFVIS_ITS ---
Vital Signs 12/08/24 08:09 Height 5 ft 4 in Weight 264 lb BMI 45.3 BP 98/50 L Blood Pressure Location Rt brachial Position Sitting Pulse 66 Pulse Source Pulse Oximeter Pulse Oximetry (%) 96 Oxygen Delivery Method Room Air Intake Visit Reasons: 6 month follow up Intake Note: ESTABLISHED PATIENT for GERD mgmt w/ hx of diabetes. Chief Complaint; Pt reports that her GERD has been under good control since last visit. Pt still only taking omeprazole per personal choice based on other medication changes recently (cardiovascular meds). Pt still has pantoprazole and will take it on occasion but more frequently takes omeprazole. Pt has also been making dietary changes which they feel have had significant impact. Director Of Securities And Real Estate Required: No Accompanied by: Self / Same As Patient Allergies fentanyl Allergy (Severe, Verified 12/08/24 08:10) Hypotension fluorescein Allergy (Severe, Verified 12/08/24 08:10) Anaphylaxis latex Allergy (Severe, Verified 12/08/24 08:10) Rash Sulfa (Sulfonamide Antibiotics) Allergy (Intermediate, Verified 12/08/24 08:10) Itching acetaminophen [From Tylenol] Allergy (Mild, Verified 12/08/24 08:10) Nausea dimenhydrinate [From Dramamine] Adverse Reaction (Severe, Verified 12/08/24 08:10) Nausea and Vomiting aspirin [From Excedrin Extra Strength] Adverse Reaction (Mild, Verified 12/08/24 08:10) Nausea caffeine [From Excedrin Extra Strength] Adverse Reaction (Mild, Verified 12/08/24 08:10) Nausea anesthesia Allergy (Severe, Uncoded 12/08/24 08:10) Hypotension HPI HPI 6 month follow up: Details: LAST VISIT: GERD (gastroesophageal reflux disease) Hiatal hernia Plan We will get medical records from her previous GI with all the endoscopies and testing that was done. Will hold off on ordering EGD at this time. I did discuss with patient that she might need a hiatal hernia repair, however patient wants to wait and see if we can compare with previous testing to see if her hernia got worse or not. Continue taking pantoprazole daily. Avoid dietary triggers and late night snacking. Staying upright for minimum 3 hours after meals discussed with patient patient can continue berberine supplement for the next 3 months and stop after that, should not take more than 2000 mg daily. Will we do lab work at her next visit liver profile with kidney function studies. Patient is agreeable to plan of care and verbalizes understanding of instructions. She was given the opportunity to ask questions and all questions answered. TODAY'S VISIT: Patient is here today for follow-up. Patient reports that she has been feeling fairly well. Only takes PPI as needed. Trying to get her records from her previous GI provider in [place]. Patient reports that she has been feeling fairly well. Patient reports that she had endoscopy and colonoscopy in 2022. She knew she was leaving [place] and wanted to make sure that she gets all of her testing done. Patient denies dyspepsia, dysphagia or odynophagia. Denies melena, hematochezia, unintentional weight loss or ribbon like stools. Patient reports that her blood sugars have been well controlled. Denies any nausea or vomiting. Denies any abdominal pain or discomfort. [facility] Medical History Screening for deficiency anemia HAYDEE (obstructive sleep apnea) Tracheomalacia GERD (gastroesophageal reflux disease) Insulin long-term use Primary hypertension Type 1 diabetes Surgical History History of vitrectomy History of cataract surgery History of carpal tunnel release History of partial hysterectomy History of bilateral breast reduction surgery Previous section Family History Other Family history unknown Social History Household Members: Family Housing: House Are you a primary medicare compliance auditor to a significant other at home: No Do you presently have visiting nurse or other home services: No 75 years or older and lives alone: No Alcohol intake: never Patient Tobacco Use Status: Never used Tobacco e-Cigarette/Vaping Use: Never Used service: No Current occupational status: retired Cognitive needs: No Hearing needs: No Vision needs: No Review of Systems Const Denies weight gain and Denies weight loss ENT Reports no additional complaints, Reports Normal hearing present, Denies dysphagia and Denies odynophagia Card Reports no additional complaints Resp Reports no additional complaints GI Denies abdominal pain, Denies belching, Denies melena, Denies bloating, Denies change in bowel habits, Denies dysphagia, Denies excessive flatus, Denies dyspepsia, Denies heartburn, Denies diarrhea, Denies loose stools, Denies nausea, Denies odynophagia and Denies vomiting Musc Reports no additional complaints Neuro Reports no additional complaints and Reports Normal hearing present Psych Reports no additional complaints Endo Reports no additional complaints Physical Exam Vital Signs: Last Vital Signs Pulse 66 12/08/24 08:09 BP 98/50 L 12/08/24 08:09 Pulse Ox 96 12/08/24 08:09 Oxygen Delivery Method Room Air 12/08/24 08:09 BMI result Body Mass Index 45.3 Const General: cooperative, healthy appearing, comfortable, no acute distress and alert Nutritional Appearance: obese Orientation/consciousness: patient oriented x3 Limitations: no limitations Eyes General: appearance normal, both eyes and all related structures Eyelids: Yes eyelids normal Sclerae: sclerae normal EOM: EOMs intact bilaterally Neck Neck: Yes normal visual inspection and Yes no lymphadenopathy Lymphatic: no lymphadenopathy noted Chest Chest palpation & inspection: normal inspection of the chest Resp Effort & Inspection: normal respiratory effort, able to speak in complete sentences, no audible wheezes, no cough, no stridor, not tachypneic, no tripod positioning and no use of accessory muscles Auscultation: clear to auscultation bilaterally Cardio Jugular venous distension: no JVD Rate: regular rate Rhythm: regular rhythm GI Inspection: Yes normal to inspection Palpation (GI): not firm, nontender and no guarding Percussion: Yes normal to percussion Auscultation: normal bowel sounds Skin Other: warm, dry General skin exam: no rashes or lesions noted Neuro General: patient oriented x3 Cranial nerves: Yes Normal hearing present Cognition (Neuro): normal cognition Gait exam (Neuro): Normal gait present Extrem General: Yes normal to inspection, Yes capillary refill normal, Yes no clubbing, cyanosis or edema and Yes no pedal edema Psych Appearance: grossly normal and well kempt Speech and movement: Normal speech and movement present Assessment & Plan Assessment & Plan (1) GERD (gastroesophageal reflux disease): Code(s): K21.9 - Gastro-esophageal reflux disease without esophagitis Category: Medical Qualifiers: Esophagitis presence: esophagitis presence not specified Qualified Code(s): K21.9 - Gastro-esophageal reflux disease without esophagitis (2) Hiatal hernia: Code(s): K44.9 - Diaphragmatic hernia without obstruction or gangrene Plan Patient will continue to take PPI. Avoid dietary triggers and late night snacking. Staying upright for minimum 3 hours after meals discussed with patient. Discussed with patient losing weigh by do it exercise, walking, calorie count. Low-fat diet. Patient will follow-up in 6 months, sooner on as needed basis. She is agreeable to this plan and verbalizes understanding of instructions. She was given the opportunity to ask questions and all questions answered. Thank you for allowing me to participate in her care Orders: Orders Vitamin B12 and Folate Today R19.7 - Diarrhea, unspecified Vitamin D 25-OH (D2 and D3) Today E55.9 - Vitamin D deficiency, unspecified Coding Level of Care Code Est Pt Level 3 (39078) Diagnoses Gastroesophageal reflux disease, unspecified whether esophagitis present K21.9 Esophagitis presence: esophagitis presence not specified Hiatal hernia K44.9 Time Spent (min) 30 Comment 20 minutes spent with patient and additional 10 minutes spent reviewing records
== END 2024-12-08 08:51 | disposition home or self-care (01) ==
PROVIDERS: PCP Internal Medicine; Visit Provider Nurse Practitioner Family
DX: K21.9 Gastro-esophageal reflux disease without esophagitis (principal); K44.9 Diaphragmatic hernia without obstruction or gangrene
CPT/HCPCS: 99213

== ENCOUNTER 2024-12-08 08:03 | Outpatient (REF) | payer OTHER, SELFPAY ==
[2024-12-08 10:35] LABS: Folate 5.9 ng/mL (> or = 4.0); Vitamin B12 349 pg/mL (200-900)
[2024-12-12 14:03] LABS: Vitamin D 25-OH, D2 <4 ng/mL; Vitamin D 25-OH, D3 36 ng/mL; Vitamin D 25-OH, Total 36 ng/mL (30-100)
== END 2024-12-08 08:04 | disposition home or self-care (01) ==
LOC: HO.LAB 08:03
PROVIDERS: PCP Internal Medicine; Visit Provider Nurse Practitioner Family
DX: R19.7 Diarrhea, unspecified (principal); E55.9 Vitamin D deficiency, unspecified
CPT/HCPCS: 36415; 82306; 82607; 82746

== ENCOUNTER 2025-01-31 08:49 | Outpatient (AMB) | payer OTHER, SELFPAY ==
--- NOTE | 2025-01-31 08:54 | A.OFFPC_ITS ---
Vital Signs 01/31/25 09:02 Height 5 ft 4 in Weight 261 lb 8 oz BMI 44.9 BP 112/60 Blood Pressure Location Lt brachial Position Sitting Respiration 16 Pulse 59 Pulse Source Pulse Oximeter Pulse Oximetry (%) 95 Oxygen Delivery Method Room Air Intake Visit Reasons: 6 month f/up Intake Note: Six month follow up Multifocal Button Inspector Required: No Allergies fentanyl Allergy (Severe, Verified 01/31/25 08:54) Hypotension fluorescein Allergy (Severe, Verified 01/31/25 08:54) Anaphylaxis latex Allergy (Severe, Verified 01/31/25 08:54) Rash Sulfa (Sulfonamide Antibiotics) Allergy (Intermediate, Verified 01/31/25 08:54) Itching acetaminophen [From Tylenol] Allergy (Mild, Verified 01/31/25 08:54) Nausea dimenhydrinate [From Dramamine] Adverse Reaction (Severe, Verified 01/31/25 08:54) Nausea and Vomiting aspirin [From Excedrin Extra Strength] Adverse Reaction (Mild, Verified 01/31/25 08:54) Nausea caffeine [From Excedrin Extra Strength] Adverse Reaction (Mild, Verified 01/31/25 08:54) Nausea anesthesia Allergy (Severe, Uncoded 01/31/25 08:54) Hypotension Tobacco use date assessed: 01/31/25 Fall risk assessment: No Falls in past year Last assessed Fall Risk: 01/31/25 Dental Screening Dental Screen Date: 01/31/25 Did you have a dental visit in the last 12 months?: Yes Did you have a dental problem in the last 6 months where you did not have access to dental care?: No Was dental information given to patient?: Patient has dentist HPI HPI Comments History of Present Illness Details 64 y/o female with a past medical histor y of type 1 diabetes, hyper tension, GERD, HAYDEE, presenting for follow up Endocrine-Type [address] Rivas. Appt next month. Blood glucose has been well controlled CV: Blood pressure is well controlled on omesartan/hctz. Rsp: Following with pulmonary. She was having a lot of breathing issues when she first moved here from [place]. This has stabilized GERD: Stable on pantoprazole. Tracheomalacia. Following with gastroenterology Colonoscopy 2022-7 year repeat Mammo UTD Follows with cover assembler [facility] ROS CONSTITUTIONAL: Denies weight loss, fever and chills. HEENT: Denies changes in vision and hearing. RESPIRATORY: Denies SOB and cough. CV: Denies palpitations and CP GI: Denies abdominal pain, nausea, vomiting and diarrhea. : Intermittent frequency, dysuria MSK: Denies new myalgia and joint pain. SKIN: Denies rash and pruritus. NEUROLOGICAL: Denies headache PSYCHIATRIC: Denies recent changes in mood. PHYSICAL EXAM: GENERAL: Alert and oriented x 3. NAD EYES: EOMI. Anicteric. HENT: Moist mucous membranes. No scleral icterus. No cervical lymphadenopathy. LUNGS: Clear to auscultation bilaterally. CARDIOVASCULAR: Regular rate and rhythm. No murmur. No JVD. ABDOMEN: Soft, non-tender +bs EXTREMITIES: No edema. Non-tender. SKIN: No rashes or lesions. Warm. NEUROLOGIC: No focal neurological deficits. CN II-XII grossly intact PSYCHIATRIC: Cooperative. Appropriate mood and affect [facility] Medical History Screening for deficiency anemia HAYDEE (obstructive sleep apnea) Tracheomalacia GERD (gastroesophageal reflux disease) Insulin long-term use Primary hypertension Type 1 diabetes Surgical History History of vitrectomy History of cataract surgery History of carpal tunnel release History of partial hysterectomy History of bilateral breast reduction surgery Previous section Family History Other Family history unknown Social History Household Members: Family Housing: House Are you a primary acute care clinical nurse specialist to a significant other at home: No Do you presently have visiting nurse or other home services: No 75 years or older and lives alone: No Alcohol intake: never Patient Tobacco Use Status: Never used Tobacco e-Cigarette/Vaping Use: Never Used service: No Current occupational status: retired Cognitive needs: No Hearing needs: No Vision needs: No Questionnaire Thrive Questionnaire Date Thrive assessed: 09/22/24 I am a: Patient What is your living situation today?: I choose not to answer this question Within the past 12 months, did the food you bought not last and you didn't have the money to get more?: I choose not to answer this question Within the past 12 months, did you worry whether your food would run out before you got money to buy more?: I choose not to answer this question Do you have trouble paying for medicines?: I choose not to answer this question Do you have trouble getting transportation to medical appointments?: I choose not to answer this question Do you have trouble paying your heating and electricity bill?: I choose not to answer this question Do you have trouble taking care of your child, family member or friend?: I choose not to answer this question Do you have trouble with day-to-day activities such as bathing, preparing meals, shopping, managing finances, etc.?: I choose not to answer this question Are you currently unemployed and looking for a job?: I choose not to answer this question Are you interested in more education?: I choose not to answer this question Please select the resources that you would like help with: None Currently or been in a relationship where the following occur: I choose not to answer THRIVE Score: 0 AUDIT C Alcohol Use Questionnaire (AUDIT-C) 1. How often do you have a drink containing alcohol?: Never 3. How often do you have six or more drinks on one occasion?: Never Total Score: 0 RODRIGO-7 AMB Questionnaire RODRIGO-7 Date RODRIGO - 7 assessed: 06/01/24 Source: Developed by Drs. Tremayne Borrego, Jigna Turk, Jason Stephen and colleagues, with an educational mikayla from [employer]. Physical exam (Primary Care) Vital Signs: Last Vital Signs Pulse 59 01/31/25 09:02 Resp 16 01/31/25 09:02 BP 112/60 01/31/25 09:02 Pulse Ox 95 01/31/25 09:02 Oxygen Delivery Method Room Air 01/31/25 09:02 BMI result Body Mass Index 44.9 Tobacco/Smoking Status: Tobacco use Status Tobacco use date assessed 01/31/25 01/31/25 09:05 Patient Tobacco Use Status Never used Tobacco 01/31/25 09:07 e-Cigarette/Vaping Use Never Used 01/31/25 09:07 Thrive Assessment: Date of Thrive Assessment Date Thrive assessed 09/22/24 01/31/25 08:56 Currently or been in a relationship where the following occur: I choose not to answer Coding Level of Care Code Est Pt Level 4 (69678) Complex EM visit Add On G2211 Diagnoses HAYDEE (obstructive sleep apnea) G47.33 Moderate persistent asthma without complication J45.40 Asthma severity: moderate Asthma persistence: persistent Asthma complication type: uncomplicated Type 1 diabetes mellitus without complication E10.9 Diabetes mellitus complication status: without complication Primary hypertension I10 Gastroesophageal reflux disease, unspecified whether esophagitis present K21.9 Esophagitis presence: esophagitis presence not specified Assessment & Plan Assessment & Plan (1) HAYDEE (obstructive sleep apnea): Code(s): G47.33 - Obstructive sleep apnea (adult) (pediatric) Category: Medical (2) Asthma: Code(s): J45.909 - Unspecified asthma, uncomplicated Category: Medical Qualifiers: Asthma severity: moderate Asthma persistence: persistent Asthma complication type: uncomplicated Qualified Code(s): J45.40 - Moderate persistent asthma, uncomplicated (3) Type 1 diabetes: Comment: Controlled. Code(s): E10.9 - Type 1 diabetes mellitus without complications Category: Medical Qualifiers: Diabetes mellitus complication status: without complication Qualified Code(s): E10.9 - Type 1 diabetes mellitus without complications (4) Primary hypertension: Comment: . Code(s): I10 - Essential (primary) hypertension Category: Medical (5) GERD (gastroesophageal reflux disease): Code(s): K21.9 - Gastro-esophageal reflux disease without esophagitis Category: Medical Qualifiers: Esophagitis presence: esophagitis presence not specified Qualified Code(s): K21.9 - Gastro-esophageal reflux disease without esophagitis Plan DM-well controlled on current medication HTN-well controlled on current medication neck pain-stable at present. does flare. prednisone prn. Aware of glucose increase on med LE swelling. Furosemide prn. Advised to increase potassium intake on days taken Orders: Orders Complete Blood Count Auto Diff Today E10.9 - Type 1 diabetes mellitus without complications, I10 - Essential (primary) hypertension Lipid Panel Today E10.9 - Type 1 diabetes mellitus without complications, I10 - Essential (primary) hypertension Comprehensive Met. Panel Today E10.9 - Type 1 diabetes mellitus without complications, I10 - Essential (primary) hypertension Medications: New furosemide 40 mg PO DAILY PRN 30 tabs 3RF leg swelling prednisone 40 mg (2 x 20 mg) PO DAILY 5 days PRN 50 tabs 0RF joint pain furosemide 40 mg PO DAILY PRN 30 tabs 3RF leg swelling prednisone 40 mg (2 x 20 mg) PO DAILY 5 days PRN 50 tabs 0RF joint pain
--- OUTSIDE RECORDS SUMMARY | 2025-01-31 09:01 | XMS_ITS | Patient Health Record ---
Author Organization [facility] Billing Info Address [address] [place] [address] Care Team Providers Care Unemployment Examiner Name Role Phone NADINE (RETIRED), JOHANNA Primary Care Provider Unavailable CHAD CASTREJON Unavailable [phone] Allergies Allergen (clinical drug ingredient) Drug/Non Drug [...] Problem Status W/U Status Risk Notes Problem [id number] Chronic cough (R05.3) Active confirmed Plan Of Treatment No Information Insurance Providers Payer Name Payer Address Payer Phone Subscriber Number Group Number Insured Name Patient Relationship to Insured Coverage Start Date Coverage End Date [employer] PPO EPO [address] JUDY HERNANDEZ [id number] Aleyda Arcos Self - patient is the insured 2 0 Medical (General) History Surgical History Surgery Date(Month/Year) None
[2025-01-31 09:02] VITALS: BP 112/60; PULSE 59; RESP 16; O2SAT 95; BMI 44.9
== END 2025-01-31 09:37 | disposition home or self-care (01) ==
LOC: HO.HMCFM 08:50
PROVIDERS: PCP Internal Medicine; Visit Provider Internal Medicine
DX: G47.33 Obstructive sleep apnea (adult) (pediatric) (principal); J45.40 Moderate persistent asthma, uncomplicated; E10.9 Type 1 diabetes mellitus without complications; I10 Essential (primary) hypertension; K21.9 Gastro-esophageal reflux disease without esophagitis

== ENCOUNTER 2025-02-01 08:47 | Outpatient (AMB) | payer OTHER, SELFPAY ==
[2025-02-01 08:51] VITALS: BP 130/66; PULSE 65; O2SAT 97; BMI 44.6
--- NOTE | 2025-02-01 08:51 | MHC.OFFVIS ---
Vital Signs 02/01/25 08:51 Height 5 ft 4 in Weight 260 lb BMI 44.6 BP 130/66 Blood Pressure Location Rt brachial Position Sitting Pulse 65 Pulse Source Pulse Oximeter Pulse Oximetry (%) 97 Oxygen Delivery Method Room Air Intake Visit Reasons: FU/ Overnight Oximetry Allergies fentanyl Allergy (Severe, Verified 02/01/25 08:57) Hypotension fluorescein Allergy (Severe, Verified 02/01/25 08:57) Anaphylaxis latex Allergy (Severe, Verified 02/01/25 08:57) Rash Sulfa (Sulfonamide Antibiotics) Allergy (Intermediate, Verified 02/01/25 08:57) Itching acetaminophen [From Tylenol] Allergy (Mild, Verified 02/01/25 08:57) Nausea dimenhydrinate [From Dramamine] Adverse Reaction (Severe, Verified 02/01/25 08:57) Nausea and Vomiting aspirin [From Excedrin Extra Strength] Adverse Reaction (Mild, Verified 02/01/25 08:57) Nausea caffeine [From Excedrin Extra Strength] Adverse Reaction (Mild, Verified 02/01/25 08:57) Nausea anesthesia Allergy (Severe, Uncoded 02/01/25 08:57) Hypotension HPI HPI FU/ Overnight Oximetry: Details: Aleyda is a pleasant 64 year old female, never smoker, with underlying asthma, HAYDEE on CPAP, tracheomalacia, vocal cord dysfunction, DM I and GERD. At baseline, she reports moderate control of respiratory symptoms, using Wixela 1 inhalation per day, has never required albuterol MDI. She continues to report intermittent wheezing and dyspnea on exertion. She reports continuous use of CPAP therapy with >80% compliance with minimal leaks, average AHI <3 over the last three months. DME is [employer]. She denies any visits to urgent care or hospitalizations since the last visit. [facility] Medical History Screening for deficiency anemia HAYDEE (obstructive sleep apnea) Tracheomalacia GERD (gastroesophageal reflux disease) Insulin long-term use Primary hypertension Type 1 diabetes Surgical History History of vitrectomy History of cataract surgery History of carpal tunnel release History of partial hysterectomy History of bilateral breast reduction surgery Previous section Family History Other Family history unknown Social History Household Members: Family Housing: House Are you a primary director of career services to a significant other at home: No Do you presently have visiting nurse or other home services: No 75 years or older and lives alone: No Alcohol intake: never Patient Tobacco Use Status: Never used Tobacco e-Cigarette/Vaping Use: Never Used service: No Current occupational status: retired Cognitive needs: No Hearing needs: No Vision needs: No Review of Systems Const Denies chills, Denies excessive sweating, Denies fever(s), Denies headache(s) and Denies night sweats Eyes Denies dry eyes, Denies irritation and Denies itchy eyes ENT Reports Normal hearing present, Denies headache(s), Denies nasal congestion, Denies nasal discharge, Denies post nasal drip and Denies sore throat Card Denies chest pain, Denies chest pain at rest, Denies chest pain with activity, Denies claudication, Denies leg edema, Denies dyspnea, Reports dyspnea on exertion, Denies orthopnea and Denies paroxysmal nocturnal dyspnea Resp Denies chest congestion, Denies excessive phlegm production, Denies pain on inspiration, Denies pain with cough, Denies dyspnea, Reports dyspnea on exertion and Denies stridor Musc Denies myalgias Neuro Reports Normal hearing present and Denies headache(s) Endo Denies excessive sweating Tim/Lymph Denies lymphadenopathy Aller/Immun Denies itchy eyes and Denies seasonal rhinorrhea Physical Exam Vital Signs: Last Vital Signs Pulse 65 02/01/25 08:51 BP 130/66 02/01/25 08:51 Pulse Ox 97 02/01/25 08:51 Oxygen Delivery Method Room Air 02/01/25 08:51 BMI result Body Mass Index 44.6 Const General: cooperative, healthy appearing, comfortable, no acute distress, well developed and alert Nutritional Appearance: obese Orientation/consciousness: patient oriented x3 Limitations: no limitations HEENT Head: Yes normal to inspection, Yes normocephalic and Yes atraumatic Ears: hearing grossly normal bilaterally and external ears normal Eyes General: appearance normal, both eyes and all related structures Eyelids: Yes eyelids normal Sclerae: sclerae normal EOM: EOMs intact bilaterally Neck Neck: Yes normal visual inspection and Yes no lymphadenopathy Lymphatic: no lymphadenopathy noted Chest Chest palpation & inspection: normal inspection of the chest Resp Effort & Inspection: normal respiratory effort, able to speak in complete sentences, no audible wheezes, no cough, no stridor, not tachypneic, no tripod positioning and no use of accessory muscles Auscultation: clear to auscultation bilaterally Cardio Jugular venous distension: no JVD Rate: regular rate Rhythm: regular rhythm Skin Other: warm, dry General skin exam: no rashes or lesions noted Neuro General: patient oriented x3 Cranial nerves: Yes Normal hearing present Cognition (Neuro): normal cognition Gait exam (Neuro): Normal gait present Extrem General: Yes normal to inspection, Yes capillary refill normal, Yes no clubbing, cyanosis or edema and Yes no pedal edema Psych Appearance: grossly normal and well kempt Speech and movement: Normal speech and movement present and Clear speech present Affect: normal affect Attitude: cooperative Thought process: Normal thought process present Thought content: Normal thought content present Insight: Good insight present (Psych) Judgement: Good judgement present (Psych) Results Reviewed Results Reviewed: [place] [address] CT Scan Report Signed Patient: Aleyda Arcos MR#: [id number] : 1960 Acct:[id number] Age/Sex: 63 / F ADM Date: 07/27/24 Loc: .CT Attending Dr: Alexandra Almanza NP Ordering Physician: Alexandra Almanza NP Date of Service: 07/27/24 Procedure(s): CT chest wo IV con Accession Number(s): [id number] cc: Asia Motley MD; Alexandra Almanza NP~ Report Number: [id number]: Total DLP = 268.00 mGy-cm EXAMINATION: CT CHEST WITHOUT CONTRAST CLINICAL INFORMATION: Multiple pulmonary nodules. COMPARISON: CT from an outside institution dated September 12, 2022 TECHNIQUE: Multidetector volumetric CT imaging of the chest was done. Axial MIP volume rendering provided. Sagittal and coronal reformatted images were obtained. This CT examination was performed using dose optimization techniques as appropriate, variously including the following: *Automated exposure control *Adjustment of mA and/or kV according to patient size (this includes techniques or standardized protocols for targeted exams where dose is matched to indication/reason for exam; i.e. extremities or head) *Use of iterative reconstruction technique DLP: 268 mGy centimeter. FINDINGS: Submitted for interpretation on September 10, 2024. Bilateral, a few scattered less than 4 mm noncalcified pulmonary nodules more conspicuous in the right lung. No consolidation pleural effusion or pneumothorax. No bronchiectasis. No honeycombing. Respiratory airways patent. Calcified plaques in the coronary arteries. No gross pericardial effusion. No aneurysm in the thoracic aorta. No gross lymphadenopathy in the mediastinum. Small hiatal hernia. Calcified plaques in the abdominal aorta and the included mesenteric arteries. Multilevel thoracolumbar spondylosis without acute fracture or listhesis. Bone marrow inhomogeneity throughout the axial skeleton. CT/CT chest wo IV con IMPRESSION: Stable noncalcified subcentimeter pulmonary nodules. Please follow-up the Fleischner society criteria. Hiatal hernia, small size. Coronary artery disease. Atherosclerosis disease. Multilevel spondylosis. Fleischner guidelines were followed. Electronically signed by: Ifeanyi Beavers MD 09/10/2024 02:55 PM EST Dictated By: Ifenayi Lopez MD Signed By: <Electronically signed by Ifeanyi Barron MD in OV> 09/10/24 1455 DD/ 0917 TD/TT: 07/27/24 0938 Japanese Interpreter: Assessment & Plan Assessment & Plan (1) Asthma: Code(s): J45.909 - Unspecified asthma, uncomplicated Category: Medical Qualifiers: Asthma complication type: uncomplicated Asthma persistence: persistent Asthma severity: moderate Qualified Code(s): J45.40 - Moderate persistent asthma, uncomplicated (2) HAYDEE (obstructive sleep apnea): Code(s): G47.33 - Obstructive sleep apnea (adult) (pediatric) Category: Medical (3) Tracheomalacia: Code(s): J39.8 - Other specified diseases of upper respiratory tract Category: Medical (4) GERD (gastroesophageal reflux disease): Code(s): K21.9 - Gastro-esophageal reflux disease without esophagitis Category: Medical Qualifiers: Esophagitis presence: esophagitis presence not specified Qualified Code(s): K21.9 - Gastro-esophageal reflux disease without esophagitis (5) Multiple pulmonary nodules: Code(s): R91.8 - Other nonspecific abnormal finding of lung field Category: Medical Plan Aleyda reports nightly use of CPAP therapy, which is reflected in [employer] ranjith. Advised to continue current settings at this time. If symptoms become less controlled, will send for inlab titration study. She noted her respiratory symptoms are moderately controlled using Wixela QD, encouraged to use BID if symptoms become less controlled and albuterol PRN. Chest CT performed 07/2024 which revealed multiple stable pulmonary nodules, more pronounced of right lung, will repeat in one year to assess stability. All questions were answered and patient is in agreement of plan. Will follow up in 6 months or sooner if needed. Orders: Orders CT chest wo IV con 6 Months R91.8 - Other nonspecific abnormal finding of lung field Coding Level of Care Code Est Pt Level 4 (41613) Diagnoses Moderate persistent asthma without complication J45.40 Asthma complication type: uncomplicated Asthma persistence: persistent Asthma severity: moderate HAYDEE (obstructive sleep apnea) G47.33 Tracheomalacia J39.8 Gastroesophageal reflux disease, unspecified whether esophagitis present K21.9 Esophagitis presence: esophagitis presence not specified Multiple pulmonary nodules R91.8
--- OUTSIDE RECORDS SUMMARY | 2025-02-01 09:11 | XMS_ITS | Patient Health Record ---
Author Organization [facility] Billing Info Address [address] [place] [address] Care Team Providers Care Driller Brake Lining Name Role Phone NADINE (RETIRED), JOHANNA Primary Care Provider Unavailable CHAD CASTREJON Unavailable [phone] Allergies Allergen (clinical drug ingredient) Drug/Non Drug [...] Problem Status W/U Status Risk Notes Problem [id number] Chronic cough (R05.3) Active confirmed Plan Of Treatment No Information Insurance Providers Payer Name Payer Address Payer Phone Subscriber Number Group Number Insured Name Patient Relationship to Insured Coverage Start Date Coverage End Date [employer] PPO EPO [address] JUDY HERNANDEZ [id number] Aleyda Arcos Self - patient is the insured 2 0 Medical (General) History Surgical History Surgery Date(Month/Year) None
== END 2025-02-01 09:32 | disposition home or self-care (01) ==
LOC: HO.HPSW 08:47
PROVIDERS: PCP Internal Medicine; Visit Provider Nurse Practitioner Family
DX: J45.40 Moderate persistent asthma, uncomplicated (principal); G47.33 Obstructive sleep apnea (adult) (pediatric); J39.8 Other specified diseases of upper respiratory tract; K21.9 Gastro-esophageal reflux disease without esophagitis; R91.8 Other nonspecific abnormal finding of lung field
CPT/HCPCS: 99214

== ENCOUNTER → 2025-02-01 08:47 | Outpatient (BNVA) | payer OTHER, SELFPAY | PROVIDERS: PCP Internal Medicine; Visit Provider Nurse Practitioner Family | DX: Z91.09 Other allergy status, other than to drugs and biological substances (principal) ==

== ENCOUNTER 2025-06-10 07:56 | Outpatient (AMB) | payer OTHER, SELFPAY ==
--- OUTSIDE RECORDS SUMMARY | 2025-06-10 07:59 | XMS_ITS | Encounter Summary ---
Author Organization [facility] Address [address] [place] [address] Phone Care Team Providers Care Contracting Support Specialist Name Role Phone Asia Escobar MD Primary Care Provider + [phone] Encounter Details Date Type Department Care Team (Late st Contact Info) Description 10/18/2024 Procedure Pass [facility], [address] [address] Social History Tobacco Use Types Packs/Day Years Used Date Smoking Tobacco: Never Smokeless Tobacco: Never Alcohol Use Standard Drinks/Week Comments Never 0 (1 standard drink = 0.6 oz pur e alcohol) Education Answer Date Recorded Are you interested in more education? Not on bre e 07/30/2023 Are you concerned about learning? Not on file 07/30/2023 No 07/30/2023 No 07/30/2023 Digital Access Answer Date Recorded No 07/30/2023 No 07/30/2023 Reliable internet access at home? Not on file 07/30/2023 Device with a working camera? Not on file Education Answer Date Recorded What is the highest level of school you have completed or the highest degree you have received? High school graduate 09/02/2023 Comments No Sex and Gender Information Value Date Recorded Sex Assigned at Female 09/02/2023 6:56 AM EST Legal Sex Female 1:32 PM EST Gender Identity Female 09/02/2023 6:56 AM EST Sexual Orientation Not on file Occupation Industry Job Start Date Job End Date not currently working Not on file Not on file Not on file documented as of this encounter Plan of Treatment Upcoming Encounters Date Type Department Care Team (Late st Contact Info) Description 10/18/2025 8:30 AM EST Office Visit [facility] [address] [place] [address] Abdirizak Larsen DO [address] [place] [address] [email or web address] documented as of this encounter Visit Diagnoses Not on filedocumented in this encounter Care Teams Contracting Support Specialist Relationship Specialty Start Date End Date Asia Escobar MD PCP - General Internal Medicine 01/07/24 documented as of this encounter Additional Source Comments The information contained in this document represents components of the legal health record. It is not the complete legal health record.[facility]
--- OUTSIDE RECORDS SUMMARY | 2025-06-10 08:00 | XMS_ITS | Patient Health Record ---
Author Organization [facility] Billing Info Address [address] [place] [id number] Care Team Providers Care Wrapping Clerk Name Role Phone NADINE (RETIRED), JOHANNA Primary Care Provider Unavailable CHAD CASTREJON Unavailable [phone] Allergies Allergen (clinical drug ingredient) Drug/Non Drug [...] Problem Status W/U Status Risk Notes Problem [id number] Chronic cough (R05.3) Active confirmed Plan Of Treatment No Information Insurance Providers Payer Name Payer Address Payer Phone Subscriber Number Group Number Insured Name Patient Relationship to Insured Coverage Start Date Coverage End Date CIGNA PPO/188 [id number] [address] JUDY HERNANDEZ [id number] Aleyda Arcos Self - patient is the insured 2 0 Medical (General) History Surgical History Surgery Date(Month/Year) None
--- OUTSIDE RECORDS SUMMARY | 2025-06-10 08:00 | XMS_ITS | Clinical Summary ---
Author Organization [facility] Address [address] [place] [id number] Phone Care Team Providers Care Shipping And Receiving Material Handler Name Role Phone Asia Escobar MD Primary Care Provider + [phone] Allergies Active Allergy Reactions Criticality Noted Date Comments Codeine Headaches Medium 09/02/2023 And Nausea Dimenhydrinate Nausea and/or Vomiting 09/02/2023 Excedrin Ib Headaches,Nausea and/or Vomiting 09/02/2023 Fentanyl Hypotension High 09/02/2023 Fluorescein Swelling,Throat Tightness Medium 02/17/2019 Itchy throat and ears Latex Rash Medium 09/02/2023 Sulfa (Sulfonamide Antibiotics) Rash with Blisters High 09/02/2023 Acetaminophen Nausea and/or Vomiting Medium 09/02/2023 Medications olmesartan-hydroC HLOROthiazide (BENICAR HCT) 40-25 mg per tablet Take 1 tablet by mouth daily. Active omeprazole (PRILOSEC) 40 MG capsule Take 40 mg by mouth 2 (two) times a day. Active ondansetron (ZOFRAN-ODT) 4 MG disintegrating tablet Take 4 mg by mouth every 12 (twelve) hours as needed for nausea. Active prochlorperazine (COMPAZINE) 10 MG tablet Take 10 mg by mouth every 6 (six) hours as needed (PRN). Active scopolamine (TRANSDERM-SCOP) 1 mg over [address] 1 patch onto the skin every third day. Active BD INSULIN SYRINGE ULTRA-FINE 0.3 mL 31 gauge x 5/16 Syrg Inject 1 each as directed 3 (three) times a day before meals. Active insulin pump cart,automated,BT (OMNIPOD 5 G6 PODS, GEN 5,) CrtgIndications:T ype 1 diabetes mellitus with proliferative retinopathy of both eyes, macular edema presence unspecified, unspecified proliferative retinopathy type Inject 1 Application under the skin every other day. 45 each 3 024 Active glucagon (BAQSIMI) 3 mg/actuation SpryIndications:T ype 1 diabetes mellitus with proliferative retinopathy of both eyes, macular edema presence unspecified, unspecified proliferative retinopathy type 1 spray by Nasal route as needed (For hypoglycemia). 3 each 3 024 Active BERBERINE CHLORIDE ORAL Take 2,000 mg by mouth 2 (two) times a day. Active CHROMIUM ORAL Take 500 mcg by mouth 2 (two) times a day. Active WIXELA INHUB 250-50 mcg/dose DISKUS USE 1 INHALATION ORALLY EVERY 12 HOURS 024 Active triamcinolone acetonide 0.1 % ointment Apply topically 2 (two) times a day. 30 g 024 Active blood-glucose sensor (DEXCOM G7 SENSOR) DeviIndications:T ype 1 diabetes mellitus with proliferative retinopathy of both eyes, macular edema presence unspecified, unspecified proliferative retinopathy type 1 Application by Miscellaneous route Every 10 Days. 9 each 025 Active OMNIPOD 5 G6-G7 PODS, GEN 5, CrtgIndications:T ype 1 diabetes mellitus with proliferative retinopathy of both eyes, macular edema presence unspecified, unspecified proliferative retinopathy type Inject 1 Application under the skin every other day. 45 each 025 Active blood-glucose transmitter (DEXCOM G6 TRANSMITTER) DeviIndications:T ype 1 diabetes mellitus with proliferative retinopathy of both eyes, macular edema presence unspecified, unspecified proliferative retinopathy type 1 Application by Miscellaneous route every 3 (three) months. 1 each 3 025 Active BD ALCOHOL SWABS PadMIndications:T ype 1 diabetes mellitus with proliferative retinopathy of both eyes, macular edema presence unspecified, unspecified proliferative retinopathy type APPLY TOPICALLY DAILY 100 each 3 025 Active ezetimibe (ZETIA) 10 mg tabletIndications :Hyperlipidemia LDL goal <100 TAKE 1 TABLET DAILY 90 tablet 025 Active blood-glucose,rec eiver,cont (DEXCOM G7 HALL TENDER) MiscIndications:T ype 1 diabetes mellitus with proliferative retinopathy of both eyes, macular edema presence unspecified, unspecified proliferative retinopathy type Continuous glucose monitoring daily 1 each 025 Active ONETOUCH VERIO Strp stripsIndications :Type 1 diabetes mellitus with proliferative retinopathy of both eyes, macular edema presence unspecified, unspecified proliferative retinopathy type Use once a day 100 strip 3 025 Active TRESIBA FLEXTOUCH U-200 200 unit/mL (3 mL) InPn injection penIndications:Ty pe 1 diabetes mellitus with proliferative retinopathy of both eyes, macular edema presence unspecified, unspecified proliferative retinopathy type Use as directed as needed for pump failure/unavaila bility, given ~ 80% usual daily basal dose (40 units), q24 hrs prn 15 mL 1 025 Active blood-glucose sensor (DEXCOM G6 SENSOR) DeviIndications:T ype 1 diabetes mellitus with proliferative retinopathy of both eyes, macular edema presence unspecified, unspecified proliferative retinopathy type 1 Application by Miscellaneous route Every 10 Days. 9 each 1 025 Active NOVOLOG U-100 INSULIN ASPART 100 unit/mL injection vialIndications:T ype 1 diabetes mellitus with proliferative retinopathy of both eyes, macular edema presence unspecified, unspecified proliferative retinopathy type INJECT UP TO 80 UNITS SUBCUTANEOUSLY DAILY VIA INSULIN PUMP 80 mL 1 025 Active NOVOLOG U-100 INSULIN ASPART 100 unit/mL injection vialIndications:T ype 1 diabetes mellitus with proliferative retinopathy of both eyes, macular edema presence unspecified, unspecified proliferative retinopathy type Use up to 80 units/day via insulin pump 80 mL 1 025 2024 Discontinued Active Problems Problem Noted Date Diagnosed Date Hyperlipidemia LDL goal <100 01/07/2024 Assessment & Plan (04/15/2025 8:44 AM EDT): LDL was 98 mg/dL based on all guidelines that would have been controlled. But we have new guidelines LDL is now less than 70 mg. She did great with LDL previously was 164 mg/dL with the use of ezetimibe but unfortunately developed myalgias and she has had it now at least since the last visit. May be prior. So she has tried in the last week taking it every other day but still complains of achiness. So my suggestion is just stop the medication and see if the achiness goes away. If it does not go away after a week or 2 weeks then I would assume that ezetimibe is not the reason for her achiness and then she should just resume it. Assessment & Plan (10/14/2024 9:56 AM EST): Uncontrolled. LDL 164 mg/dL which has increased. She is reluctant to try statins I did prescribe them in the past. She is concerned about muscle aches etc. I did inform her that she will not know if she is can have adverse effects and so she tries the medication. In any case she is willing to try ezetimibe 10 mg which is not a statin. She should repeat lipid panel prior to the follow-up visit. Assessment & Plan (04/12/2024 9:24 AM EDT): Uncontrolled. LDL 129 mg/dl. She is trying to diet and exercise. She is concerned about starting statins. If she can get her LDL below 100 that is wonderful. I suggested that maybe if she wants to try natural products she try red yeast rice but it is just like a statin less potent. I do not know if this is going to work for her. But she should make a good effort if she is going to try going to diet roots and natural supplements. If it does not work I urged her to start a statin because her LDL needs to be below 100 mg/dL. I will request a repeat lipid panel. Assessment & Plan (01/07/2024 9:41 AM EDT): Uncontrolled. LDL 151 mg/dL. The patient is somewhat reluctant about taking statins. But it is necessary in order to decrease the LDL below 100. I will start out with a small dose of rosuvastatin 5 mg may not be sufficient but we can see if she has any potential adverse effects with this medication. Type 1 diabetes mellitus wit h proliferative retinopathy of both eyes 10/09/2023 Assessment & Plan (04/15/2025 8:58 AM EDT): Controlled. Hemoglobin A1c is 5.9 percent. 87% in target 9% above the reference range 4% between 54 and 69 mg/dL. She finds that the OmniPod does not give her enough correction doses or give 6 more corrections doses that do not decrease her glucose level fast enough so sometimes she does her own corrections in addition. The only concern I would have is that her low range is 4% and acceptable is 3% based on guidelines so she needs to be careful not to cause too much hypoglycemia with additional boluses otherwise she has very good glycemic control we will continue current regimen. Assessment & Plan (10/14/2024 10:22 AM EST): Controlled. Hemoglobin A1c 6.4%. She is using the sensors every 2 days. But she has also been doing additional boluses for normal glucose levels which she should not. So hopefully she will have enough insulin pods I did request 15 pods per month. In general she is doing quite well so I am not going to make any changes to her regimen. Assessment & Plan (04/12/2024 9:21 AM EDT): Controlled. Hemoglobin A1c 5.9%. Low glucose levels 1%. No changes required. Assessment & Plan (01/07/2024 9:54 AM EDT): Controlled. Hemoglobin A1c 6.1%. CGM is flat for the most part elevations from 9 PM to athletic gear custodian hours but the glucose level is still below 180 mg/dl. I do not necessarily have to make any changes but the patient would like to lose weight. We discussed using Ozempic. She has no contraindications such as pancreatitis or medullary thyroid carcinoma. I explained that is associated with nausea, vomiting, diarrhea, constipation but will start with the smallest dose of 0.25 mg weekly. She may have to change her pump settings to decrease her insulin or possibly will require less bolus. This is assuming that she still has C-peptide production because of her history of diabetes mellitus type 1. However Ozempic works by different mechanisms it decreases appetite as a neurotransmitter in the hypothalamus and it decreases hepatic gluconeogenesis. So it can help in those ways to lose weight and improve glycemic control. Again the concern I will have now is that she may develop hypoglycemia even with a small dose so it is best to start with the small dose and see how she progresses. Assessment & Plan (10/09/2023 10:40 AM EST): Controlled. Hemoglobin A1c 6.2%. 77% of the glucose are in range. And this is actually very good. However she can do better. She is having postprandial hyperglycemia from 3 to 8 PM. This may be from snacking and not bolusing but also at dinnertime she may need to administer the bolus 15 minutes prior to the meal but even so she is going high. I suggest increasing her basal insulin or adding a new basal setting from 3 to 8 PM and just increasing from 1.9 to 2.0 units and hopefully this will help. Otherwise I do not need to make any changes I requested lab work including CBC, lipid panel, urine microalbumin creatinine ratio and hemoglobin A1c for the follow-up visit. Encounters Date Type Department Care Team Description 05/27/2025 Refill [facility] [address] [place] [address] Natasha Agarwal PA-C Medication Refill 04/22/2025 9:10 AM EDT - 04/22/2025 11:59 PM EDT Hospital Encounter [address] [address] Asia Escobar MD Discharge Disposition: Home or Self Care 04/15/2025 8:30 AM EDT Office Visit [facility] [address] [place] [address] Abdirizak Larsen DO Type 1 diabetes mellitus with proliferative retinopathy of both eyes, macular edema presence unspecified, unspecified proliferative retinopathy type (Primary Dx); Hyperlipidemia LDL goal <70 04/05/2025 8:44 AM EDT - 04/05/2025 11:59 PM EDT Hospital Encounter [facility] [address] [place] [id number] Abdirizak Larsen DO Discharge Disposition: Home or Self Care 03/30/2025 Refill [facility] [address] [place] [address] Abdirizak Larsen DO Medication Refill 10/18/2024 Procedure Pass [address] [address] from Last 3 Months Family History Medical History Relation Comments No Known Problems Maternal Grandfather Relation Status Comments Brother Alive Father Maternal Grandfather Maternal Grandmother Mother Paternal Grandfather Paternal Grandmother Sister Alive Social History Tobacco Use Types Packs/Day Years Used Date Smoking Tobacco: Never Smokeless Tobacco: Never Tobacco Cessation:Counseling Given: Not Answered Alcohol Use Standard Drinks/Week Comments Never 0 [...] file Not on file Not on file Last Filed Vital Signs Vital Sign Reading Time Taken Comments Blood Pressure 122/78 10/14/2024 9:08 AM EST Pulse 73 10/14/2024 9:08 AM EST Temperature - - Respiratory Rate - - Oxygen Saturation 99% 10/14/2024 9:08 AM EST Inhaled Oxygen Concentration - - Weight 118.8 kg (261 lb 12.8 oz) 10/14/2024 9:08 AM EST Height 162.6 cm (5' 4 ) 10/14/2024 9:08 AM EST Body Mass Index 44.94 10/14/2024 9:08 AM EST Plan of Treatment Upcoming Encounters Date Type Department Care Team (Late st Contact Info) Description 10/18/2025 8:30 AM EST Office Visit [facility] [address] [place] [address] Abdirizak Larsen DO [address] [place] [address] [email or web address] Health Maintenance Due Date Last Done Comments Adult Td,Tdap Booster 1960 DEPRESSION SCREENING 1972 HEPATITIS C SCREENING 1978 HIV ONE-TIME SCREENING (18-65 YEARS) 1978 PNEUMOCOCCAL VACCINES (50+ years) (1 of 2 - PCV) 1979 COLOGUARD 2005 COLONOSCOPY 2005 COLORECTAL CANCER SCREENING 2005 FIT TEST 2005 FOBT 2005 SIGMOIDOSCOPY 2005 VIRTUAL COLONOSCOPY 2005 RSV VACCINE (1 - Risk 50-74 years 1-dose series) 2010 ZOSTER VACCINES (1 of 2) 2010 DIABETIC EYE EXAM 10/09/2023 INFLUENZA VACCINE (#1) 2025 COVID-19 VACCINE ( - 2024- season) 2025 CREATININE LEVEL 10/05/2025 10/05/2024, 12/26/2023 POTASSIUM LEVEL 10/05/2025 10/05/2024, 12/26/2023 HEMOGLOBIN A1C 10/06/2025 04/05/2025, 09/25, 04/05/2024, Additional history exists BLOOD PRESSURE 10/16/2025 04/15/2025 LIPID PANEL 04/05/2026 04/05/2025, 09/25, 04/05/2024, Additional history exists PAP SMEAR 11/06/2026 11/07/2023 MAMMOGRAM 04/22/2027 04/22/2025, 12/24, 09/30/2022, Additional history exists SMOKING STATUS SCREENING (Once After 26 Yrs) Completed 04/22/2025 HEPATITIS A VACCINES Aged Out No long er eligible based on patient's age to complete this topic HIB VACCINES Aged Out No longer eligi ble based on patient's age to complete this topic MENINGOCOCCAL VACCINES (ACWY) Aged Out No longer eligible based on patient's age to complete this topic MENINGOCOCCAL VACCINES (B) Aged Out N o longer eligible based on patient's age to complete this topic Medical Devices Not on file Procedures Procedure Name Priority Date/Time Associated Diagnosis Comments BI MAMMOGRAM SCREENING WITH TOMOSYNTHESIS WITH CAD (BILATERAL) Routine 04/22/2025 9:31 AM EDT Visit for screening mammogram MICROALBUMIN/CREATINI NE RATIO, RANDOM URINE Routine 04/05/2025 8:53 AM EDT Type 1 diabetes mellitus with proliferative retinopathy of both eyes, macular edema presence unspecified, unspecified proliferative retinopathy type HEMOGLOBIN A1C Routine 04/05/2025 8:44 AM EDT Type 1 diabetes mellitus with proliferative retinopathy of both eyes, macular edema presence unspecified, unspecified proliferative retinopathy type LIPID PANEL Routine 04/05/2025 8:44 AM EDT Type 1 diabetes mellitus with proliferative retinopathy of both eyes, macular edema presence unspecified, unspecified proliferative retinopathy type Hyperlipidemia LDL goal <100 COMPREHENSIVE METABOLIC PANEL Routine 10/05/2024 9:42 AM EST Type 1 diabetes mellitus with proliferative retinopathy of both eyes, macular edema presence unspecified, unspecified proliferative retinopathy type PAP TEST Routine 11/07/2023 12:00 AM EDT from Last 3 Months or Most Recently Relevant to Health Maintenance Results * BI MAMMOGRAM SCREENING WITH TOMOSYNTHESIS WITH CAD (BILATERAL) (04/22/2025 9:31 AM EDT) Anatomical Region Laterality Modality Breast Left, Breast Right, Breast Bilateral Bila teral Mammography 04/26/2025 7:21 AM EDT Impressions 04/26/2025 7:23 AM EDT No mammographic evidence of malignancy in either breast. Annual screening mammography is recommended. BI-RADS 2 BENIGN The patient will be notified of the results and recommendations. Narrative 04/26/2025 7:23 AM EDT BI MAMMOGRAM SCREENING WITH TOMOSYNTHESIS WITH CAD (BILATERAL) Additional patient information: Screening. COMPARISON: Comparison is made with relevant prior imaging. Breast composition: There are scattered areas of fibroglandular density. FINDINGS: Previous reduction mammoplasty. No abnormal masses, suspicious calcifications, or other significant findings are identified mammographically in either breast. Procedure Note Shireen Davidson MD, PhD - 04/26/2025 BI MAMMOGRAM SCREENING WITH TOMOSYNTHESIS WITH CAD (BILATERAL) Additional patient information: Screening. COMPARISON: Comparison is made with relevant prior imaging. Breast composition: There are scattered areas of fibroglandular density. FINDINGS: Previous reduction mammoplasty. No abnormal masses, suspicious calcifications, or other significantfindings are identified mammographically in either breast. IMPRESSION: No mammographic evidence of malignancy in either breast. Annual screening mammography is recommended. BI-RADS 2 BENIGN The patient will be notified of the results and recommendations. us Asia Escobar MD IMG MG EXAMS Final Result * Microalbumin/creatinine ratio, random urine (04/05/2025 8:53 AM EDT) URINE MICROALBUMIN <1.2 0 - 2.3 mg/dL [facility] URINE CREATININE 134 mg/dL [facility] MICROALB/CRE RATIO NOT CALCULATED 0 - 20 mg/g Cre [facility] Comment:due to Microalbumin <1.2 Urine (Urine) 04/05/2025 8:5 3 AM EDT 04/05/2025 8:55 AM EDT us Abdirizak Larsen DO URINE ORDERABLES Final Result [facility] [address] [place] [address] * (ABNORMAL) Hemoglobin A1c (04/05/2025 8:44 AM EDT) HEMOGLOBIN A1C 5.9(H) 4.3 - 5.8 % [facility] Blood 04/05/2025 8:44 AM EDT 04/05/2025 8:49 AM EDT Abdirizak Larsen LAB BLOOD ORDERABLES Final Resul t Performing Organization Address [facility] Co de Phone Number [address] [address] * (ABNORMAL) Lipid panel (04/05/2025 8:44 AM EDT) HDL 53 mg/dL [facility] Comment: Interpretation <40 mg/dL: Low HDL cholesterol (major risk factor for CHD) Greater than or equal to 60 mg/dL: High HDL cholesterol ( negative risk factor for CHD) HDL - cholesterol is affected by a number of factors, e.g. smoking, excerise, hormones, sex and age. CHOLESTEROL 170 0 - 240 mg/dL [facility] TRIGLYCERIDES 94 30 - 160 mg/dL [facility] LDL 98 50 - 129 mg/dL [facility] Comment: LDL levels in terms of risk for coronary heart disease: <100 mg/dL: Optimal 100-129 mg/dL: Near or above optimal 130-159 mg/dL: Borderline high 160-189 mg/dL: High >190 mg/dL: Very High CARDIAC RISK RATIO 3.2(L) 3.3 - 4.4 C [facility] Blood 04/05/2025 8:44 AM EDT 04/05/2025 8:49 AM EDT Abdirizak Larsen DO LAB BLOOD ORDERABLES Final Resul t Performing Organization Address [facility]/ZIP Co de Phone Number [address] [phone] * (ABNORMAL) Comprehensive metabolic panel (10/05/2024 9:42 AM EST) SODIUM 140 133 - 146 mmol/L [facility] POTASSIUM 4.1 3.3 - 5.1 mmol/L [facility] CHLORIDE 103 96 - 108 mmol/L [facility] CO2 28 21 - 35 mmol/L [facility] BUN 11 6 - 19 mg/dL [facility] CREATININE 0.90 0.5 - 1.5 mg/dL [facility] GLUCOSE 168(H) 70 - 99 mg/dL [facility] ALBUMIN 4.1 3.9 - 4.8 g/dL [facility] TOTAL PROTEIN 6.4(L) 6.5 - 8.0 g/dL [facility] CALCIUM 9.5 8.4 - 10.3 mg/dL [facility] ALKALINE PHOSPHATASE 107 39 - 117 U/L [facility] TOTAL BILIRUBIN 0.6 0.0 - 1.2 mg/dL [facility] AST 24 0 - 37 U/L [facility] ALT 34 0 - 40 U/L [facility] GLOBULIN 2.3 1 - 4.8 g/dL [facility] EGFR 71 >59 mL/min/1.7 3m2 [facility] Comment:Estimated glomerular filtration rate calculated using the CKD-EPI refit equation. ANION GAP 13 10 - 20 mmol/L [facility] Blood 10/05/2024 9:42 AM EST 10/05/2024 9:45 AM EST Abdirizak Larsen DO LAB BLOOD ORDERABLES Final Resul t Performing Organization Address City/State/[facility] [place] [address] * Pap Test (11/07/2023 12:00 AM EDT) [place] [address] Cardiovascular Lab Director: Shira Card MD AB INITIO ETL DEVELOPER Cytology Report FINAL DIAGNOSIS A. PAP SMEAR (SUREPATH) CE: SPECIMEN ADEQUACY: Satisfactory for evaluation; transformation zone absent/insufficien t. Limited by mucus/lubricant INTERPRETATION: NEGATIVE FOR INTRAEPITHELIAL LESION OR MALIGNANCY. Electronically Signed Out By: DALJIT Rice(ASCP) The Pap test is a screening test primarily for squamous cancers and precursors and has associated false-negative and false-positive results. New technologies such as liquid-based preparations may decrease but will not eliminate all false-negative results. Regular sampling and follow-up of unexplained clinical signs and symptoms are recommended to minimize false negative results. PROCEDURES/ADDENDA HPV Testing (Requested) Ordered Date: 11/10/2023 A. PAP SMEAR (SUREPATH) CE: Human Papilloma Virus Test NEGATIVE for high-risk Human Papilloma Virus types 16, 18, 45 and the Other high risk probe set (Includes 31, 33, 35, 39, 51, 52, 56, 58, 59, 66, 68) Note: Testing performed by [employer] HR-HPV analysis. Clinical correlation is advised. This HPV test was performed at [address] This test has been FDA approved for both SurePath and ThinPrep cervical cytology specimens. The accuracy and precision of this test for all other specimen sources has been verified in the Cytopathology Laboratory of the [facility] and has not been cleared or approved by the U.S. Food and Drug Administration. Clinical correlation is advised. CLINICAL HISTORY Date of Last Menstrual Period: Not Provided Menstrual History: Post Menopausal Other Clinical Conditions: Screening Pap SPECIMEN SOURCE A: PAP SMEAR (SUREPATH) CE Patient Name: ALEYDA JAIN : 1960 (Age: 63) Sex: F Institution: [facility] Location: [facility] Date of Collection: 11/07/2023 Date of Reported: 11/14/2023 11:58 [facility] Final Diagnosis A. PAP SMEAR (SUREPATH) CE: SPECIMEN ADEQUACY: Satisfactory for evaluation; transformation zone absent/insufficien t. Limited by mucus/lubricant INTERPRETATION: NEGATIVE FOR INTRAEPITHELIAL LESION OR MALIGNANCY. [facility] Results\Inter pretation A. PAP SMEAR (SUREPATH) CE: Human Papilloma Virus TestNEGATIVE for high-risk Human Papilloma Virus types 16, 18, 45 and the Other high risk probe set (Includes 31, 33, 35, 39, 51, 52, 56, 58, 59, 66, 68)Note: Testing performed by [employer] HR-HPV analysis. Clinical correlation is advised. This HPV test was performed at [address] This test has been FDA approved for both SurePath and ThinPrep cervical cytology specimens. The accuracy and precision of this test for all other specimen sources has been verified in the Cytopathology Laboratory of the [facility] and has not been cleared or approved by the U.S. Food and Drug Administration. Clinical correlation is advised. [facility] Conversion Type 11/07/2023 9:41 AM EDT Kim Deshpande MD CYTOLOGY ORDER CHARLY Edited Result - Final [facility] [address] [place] [address] from Last 3 Months or Most Recently Relevant to Health Maintenance Insurance [employer] PPO [employer] PPO [employer]IG[employer] PPO [employer]IG[employer] PPO [employer]IG[employer] PPO [employer]IG[employer] PPO Care Teams Shipping And Receiving Material Handler Relationship Specialty Start Date End Date Asia Escobar MD PCP - General Internal Medicine 01/07/24 Additional Source Comments The information contained in this document represents components of the legal health record. It is not the complete legal health record.[facility]
--- OUTSIDE RECORDS SUMMARY | 2025-06-10 08:00 | XMS_ITS | Encounter Summary ---
Author Organization [facility] Address [address] [facility] [address] [place] [phone] Phone Care Team Providers Care Electrical Prospecting Supervisor Name Role Phone Pcp, Unknown Primary Care Provider Asia Chase MD Primary Care Provider [phone] Encounter Details Date Type Department Care Team (Late st Contact Info) Description 11/07/2023 Procedure Pass [facility], [facility] [address] [place] [address] Social History Tobacco Use Types Packs/Day Years [...] AM EST Office Visit [facility] [address] [place] [address] Abdirizak Larsen DO [address] [place] [address] [email or web address] documented as of this encounter Visit Diagnoses Not on filedocumented in this encounter Care Teams Electrical Prospecting Supervisor Relationship Specialty Start Date End Date Pcp, Unknown PCP - General 07/30/23 01/06/24 Asia Escobar MD PCP - General Internal Medicine 01/07/24 documented as of this encounter Additional Source Comments The information contained in this document represents components of the legal health record. It is not the complete legal health record.[facility]
--- NOTE | 2025-06-10 08:06 | A.OFFVIS_ITS ---
Vital Signs 06/10/25 08:09 Height 5 ft 4 in Weight 253 lb 8.505 oz BMI 43.5 BP 105/48 L Blood Pressure Location Lt radial Position Sitting Pulse 62 Intake Visit Reasons: 6 mo f/u Intake Note: ESTABLISHED PATIENT for GERD mgmt w/ hx of diabetes. Chief Complaint; reports GERD stable with Prilosec as needed. On vegetable diet. Telemarketer Required: No Accompanied by: Self / Same As Patient Allergies fentanyl Allergy (Severe, Verified 06/10/25 08:14) Hypotension fluorescein Allergy (Severe, Verified 06/10/25 08:14) Anaphylaxis latex Allergy (Severe, Verified 06/10/25 08:14) Rash Sulfa (Sulfonamide Antibiotics) Allergy (Intermediate, Verified 06/10/25 08:14) Itching acetaminophen (From Tylenol) Allergy (Mild, Verified 06/10/25 08:14) Nausea dimenhydrinate (From Dramamine) Adverse Reaction (Severe, Verified 06/10/25 08:14) Nausea and Vomiting aspirin (From Excedrin Extra Strength) Adverse Reaction (Mild, Verified 06/10/25 08:14) Nausea caffeine (From Excedrin Extra Strength) Adverse Reaction (Mild, Verified 06/10/25 08:14) Nausea anesthesia Allergy (Severe, Uncoded 06/10/25 08:14) Hypotension HPI HPI 6 mo f/u: Details: LAST VISIT GERD (gastroesophageal reflux disease) Hiatal hernia Plan Patient will continue to take PPI. Avoid dietary triggers and late night snacking. Staying upright for minimum 3 hours after meals discussed with patient. Discussed with patient losing weigh by do it exercise, walking, calorie count. Low-fat diet. Patient will follow-up in 6 months, sooner on as needed basis. She is agreeable to this plan and verbalizes understanding of instructions. She was given the opportunity to ask questions and all questions answered. ? Thank you for allowing me to participate in her care Orders Vitamin B12 and Folate Today R19.7 Vitamin D 25-OH (D2 and D3) Today E55.9 TODAY'S VISIT Patient is here today for follow-up. Patient reports that she has been doing fairly well. Patient has been over 1 throughout the summer as she has been working a lot participating in [employer]. Patient is a [place] and she has been baking the whole summer all the way till last Friday. We were finally able to get her records from both upper endoscopy and colonoscopy from 04/24/2023. 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 Upper endoscopy showed inflammatory changes suspicious for eosinophilic esophagitis, however biopsy showed no evidence of EE. Someone mucosa found at the GE junction, however no Barretts found. Patient reports that she has been doing fairly well. Uses Prilosec as needed. Patient reports that she is moving her bowels without any issues. Denies any dyspepsia, dysphagia or odynophagia. Denies melena, hematochezia, unintentional weight loss or ribbon like stools. [facility] Medical History Screening for deficiency anemia HAYDEE (obstructive sleep apnea) Tracheomalacia GERD (gastroesophageal reflux disease) Insulin long-term use Primary hypertension Type 1 diabetes Surgical History History of vitrectomy History of cataract surgery History of carpal tunnel release History of partial hysterectomy History of bilateral breast reduction surgery Previous section Family History Other Family history unknown Social History Household Members: Family Housing: House Are you a primary assistant child care teacher to a significant other at home: No Do you presently have visiting nurse or other home services: No 75 years or older and lives alone: No Alcohol intake: never Patient Tobacco Use Status: Never used Tobacco e-Cigarette/Vaping Use: Never Used service: No Current occupational status: retired Cognitive needs: No Hearing needs: No Vision needs: No Review of Systems Const Denies weight gain and Denies weight loss ENT Reports no additional complaints, Reports Normal hearing present, Denies dysphagia and Denies odynophagia Card Reports no additional complaints Resp Reports no additional complaints GI Denies abdominal pain, Denies belching, Denies melena, Denies bloating, Denies change in bowel habits, Denies dysphagia, Denies excessive flatus, Denies dyspepsia, Denies heartburn, Denies diarrhea, Denies loose stools, Denies nausea, Denies odynophagia and Denies vomiting Musc Reports no additional complaints Neuro Reports no additional complaints and Reports Normal hearing present Psych Reports no additional complaints Endo Reports no additional complaints Physical Exam Vital Signs: Last Vital Signs Pulse 62 06/10/25 08:09 BP 105/48 L 06/10/25 08:09 BMI result Body Mass Index 43.5 Const General: cooperative, healthy appearing, comfortable, no acute distress and alert Nutritional Appearance: obese Orientation/consciousness: patient oriented x3 Limitations: no limitations Eyes General: appearance normal, both eyes and all related structures Eyelids: Yes eyelids normal Sclerae: sclerae normal EOM: EOMs intact bilaterally Neck Neck: Yes normal visual inspection and Yes no lymphadenopathy Lymphatic: no lymphadenopathy noted Chest Chest palpation & inspection: normal inspection of the chest Resp Effort & Inspection: normal respiratory effort, able to speak in complete sentences, no audible wheezes, no cough, no stridor, not tachypneic, no tripod positioning and no use of accessory muscles Auscultation: clear to auscultation bilaterally Cardio Jugular venous distension: no JVD Rate: regular rate Rhythm: regular rhythm GI Inspection: Yes normal to inspection Palpation (GI): not firm, nontender and no guarding Percussion: Yes normal to percussion Auscultation: normal bowel sounds Skin Other: warm, dry General skin exam: no rashes or lesions noted Neuro General: patient oriented x3 Cranial nerves: Yes Normal hearing present Cognition (Neuro): normal cognition Gait exam (Neuro): Normal gait present Extrem General: Yes normal to inspection, Yes capillary refill normal, Yes no clubbing, cyanosis or edema and Yes no pedal edema Psych Appearance: grossly normal and well kempt Speech and movement: Normal speech and movement present Assessment & Plan Assessment & Plan (1) GERD (gastroesophageal reflux disease): Code(s): K21.9 - Gastro-esophageal reflux disease without esophagitis Category: Medical Qualifiers: Esophagitis presence: esophagitis presence not specified Qualified Code(s): K21.9 - Gastro-esophageal reflux disease without esophagitis Plan Patient reports that she is not really having any reflux, only occasionally. Will start her on Prilosec. Patient can take it daily. Will try small dose. Patient will continue avoiding dietary triggers and late night snacking. Staying upright for minimum 3 hours after meals discussed with patient. Patient will follow-up in 6 months, sooner on as needed basis. She is agreeable to this plan and verbalizes understanding of instructions. She was given the opportunity to ask questions and all questions answered. Thank you for allowing me to participate in her care Medications: Refilled pantoprazole 20 mg PO DAILY 90 tabs 5RF Coding Level of Care Code Tele Est Pt Level 3 (37073) Diagnoses Gastroesophageal reflux disease, unspecified whether esophagitis present K21.9 Esophagitis presence: esophagitis presence not specified Time Spent (min) 30 Comment 20 minutes spent with patient and additional 10 minutes spent reviewing her records
[2025-06-10 08:09] VITALS: BP 105/48; PULSE 62; BMI 43.5
== END 2025-06-10 08:34 | disposition home or self-care (01) ==
LOC: HO.HGI 07:57
PROVIDERS: PCP Internal Medicine; Visit Provider Nurse Practitioner Family
DX: K21.9 Gastro-esophageal reflux disease without esophagitis (principal)
CPT/HCPCS: 99213

== ENCOUNTER 2025-07-29 11:22 | Outpatient (REF) | payer OTHER, SELFPAY ==
--- NOTE | ~2025-07-29 | CT_ITS ---
CLINICAL HISTORY: R91.8 - Other nonspecific abnormal finding of lung field CT chest without contrast Comparison: CT/ME/SR - CT CHEST WO IV CON - 07/27/24 09:17 EST Findings: The heart size is normal. Mild Atherosclerosis calcification of the coronary artery. The visualized thyroid and mediastinum are unremarkable. Mild emphysema. There are calcified granulomas. Stable 4 mm noncalcified nodule of the left lower lobe series 5, image 111. Stable 3 mm nodule of the right middle lobe image 79. Stable additional micro nodules. The upper abdomen is unremarkable. Small hiatal hernia. No acute fractures. IMPRESSION: Stable pulmonary nodules. CT chest follow-up in 1 year as indicated. Fleischner Society 2017 Guidelines for incidentally detected indeterminate nodules in persons 35 years of age or older. Single Solid Nodules: 5 mm or smaller nodules need no follow-up in low risk, and [address] follow-up is optional in high risk patients. 6-8 mm nodules have optional [address] follow-up in low risk, and 6-[address] follow-up followed by 18-[address] follow-up if no change in high risk patients. 9 mm or larger nodules should consider CT, PET/CT, or biopsy at 3 months regardless of patient risk. Multiple Solid Nodules: 5 mm or smaller nodules need no follow-up in low risk, and [address] follow-up is optional in high risk patients. 6-8 mm nodules need 3-[address] follow-up followed by an optional 18-[address] follow-up regardless of patient risk. 9 mm or larger nodules should consider 3-[address] follow-up. For low risk 18-24 month follow-up is optional, whereas for high risk it is needed. Single Ground Glass Nodules: 5 mm or smaller nodules need no followup 6 mm and larger nodules need CT at 6-12 months to confirm persistence, then CT every 2 years until 5 years Single Subsolid Nodules: 5 mm or smaller nodules need no followup 6 mm and larger nodules need CT at 3-6 months to confirm persistence. If no change and solid component /T/lt;6 mm, then CT every year until 5 years Multiple Ground Glass or Subsolid Nodules: 5 mm or smaller nodules need CT at 3-6 months. If stable, optional CT at 2 and 4 years. 6 mm or larger nodules need CT at 3-6 months. Subsequent management based on most suspicious nodule This document has been electronically signed by: Mansoor Benitez MD on 07/29/2025 16:36:33
== END 2025-07-29 11:23 | disposition home or self-care (01) ==
LOC: HO.CT 11:22
PROVIDERS: PCP Internal Medicine; Visit Provider Nurse Practitioner Family
DX: R91.8 Other nonspecific abnormal finding of lung field (principal)
CPT/HCPCS: 71250

== ENCOUNTER → 2025-07-29 11:27 | Outpatient (BNV) | payer OTHER, SELFPAY | PROVIDERS: PCP Internal Medicine; Visit Provider Nuclear Medicine | DX: R91.8 Other nonspecific abnormal finding of lung field (principal) | CPT/HCPCS: 71250 ==

== ENCOUNTER 2025-08-02 08:48 | Outpatient (AMB) | payer OTHER, SELFPAY ==
--- NOTE | 2025-08-02 08:50 | A.OFFVIS_ITS ---
Vital Signs 08/02/25 08:51 Height 5 ft 4 in Weight 263 lb 8 oz BMI 45.2 BP 114/60 Blood Pressure Location Rt brachial Position Sitting Pulse 63 Pulse Source Pulse Oximeter Pulse Oximetry (%) 97 Oxygen Delivery Method Room Air Intake Visit Reasons: Asthma Allergies fentanyl Allergy (Severe, Verified 08/02/25 08:55) Hypotension fluorescein Allergy (Severe, Verified 08/02/25 08:55) Anaphylaxis latex Allergy (Severe, Verified 08/02/25 08:55) Rash Sulfa (Sulfonamide Antibiotics) Allergy (Intermediate, Verified 08/02/25 08:55) Itching acetaminophen (From Tylenol) Allergy (Mild, Verified 08/02/25 08:55) Nausea dimenhydrinate (From Dramamine) Adverse Reaction (Severe, Verified 08/02/25 08:55) Nausea and Vomiting aspirin (From Excedrin Extra Strength) Adverse Reaction (Mild, Verified 08/02/25 08:55) Nausea caffeine (From Excedrin Extra Strength) Adverse Reaction (Mild, Verified 08/02/25 08:55) Nausea anesthesia Allergy (Severe, Uncoded 08/02/25 08:55) Hypotension HPI Comments Details: Aleyda is a pleasant 64 year old female, never smoker, with underlying asthma, HAYDEE on CPAP, tracheomalacia, vocal cord dysfunction, DM I and GERD. The patient has a history of obstructive sleep apnea treated with CPAP, but she reports she has never had a good night's sleep since starting therapy as she is a very light sleeper and is disturbed by mask seal issues. She is a side sleeper and uses a nasal pillows which she finds to be the most comfortable option. Her last sleep study was several years ago. Despite her discomfort, CPAP data from the last three months shows good compliance with usage averaging 7 to 8 hours per night, minimal leaking and an AHI under 2 events/hour. The patient questions if she is benefiting from the therapy in terms of daytime tiredness. She has considered the Inspire device but is hesitant due to having other medical implants. Regarding her asthma, she is prescribed Wixela twice daily but is only taking it once in the morning. She will rarely, perhaps once every three weeks to a month, take a second dose if she feels her throat is tight, which she sometimes associates with damp weather. She denies any use of her albuterol rescue inhaler. The patient reports a morning cough after using her inhaler and a persistent feeling of being unable to exhale fully. She denies any recent emergency room visits or hospitalizations for respiratory issues. Her other medical history includes Type 1 diabetes, managed with an insulin pump and CGM, with a recent A1c of 5.9%. Her sleep is frequently disrupted by alarms from her CGM for hyperglycemia, which wakes her up as she is a light sleeper. She also has a history of bruxism, for which she wears a mouth guard at night. The patient has received COVID-19 vaccines but stopped due to experiencing severe, week-long illness after each dose. She avoids flu and pneumonia vaccines due to a severe reaction to a flu shot 30 years ago. [facility] Medical History Screening for deficiency anemia HAYDEE (obstructive sleep apnea) Tracheomalacia GERD (gastroesophageal reflux disease) Insulin long-term use Primary hypertension Type 1 diabetes Surgical History History of vitrectomy History of cataract surgery History of carpal tunnel release History of partial hysterectomy History of bilateral breast reduction surgery Previous section Family History Other Family history unknown Social History Household Members: Family Housing: House Are you a primary nursing care partner to a significant other at home: No Do you presently have visiting nurse or other home services: No 75 years or older and lives alone: No Alcohol intake: never Patient Tobacco Use Status: Never used Tobacco e-Cigarette/Vaping Use: Never Used service: No Current occupational status: retired Cognitive needs: No Hearing needs: No Vision needs: No Review of Systems Narrative Const Denies chills, Denies excessive sweating, Denies fever(s), Denies headache(s) and Denies night sweats Eyes Denies dry eyes, Denies irritation and Denies itchy eyes ENT Reports Normal hearing present, Denies headache(s), Denies nasal congestion, Denies nasal discharge, Denies post nasal drip and Denies sore throat Card Denies chest pain, Denies chest pain at rest, Denies chest pain with activity, Denies claudication, Denies leg edema, Denies dyspnea, Denies orthopnea and Denies paroxysmal nocturnal dyspnea Resp Denies chest congestion, Denies excessive phlegm production, Denies pain on inspiration, Denies pain with cough, Denies dyspnea and Denies stridor Musc Denies myalgias Neuro Reports Normal hearing present and Denies headache(s) Endo Denies excessive sweating Tim/Lymph Denies lymphadenopathy Aller/Immun Denies itchy eyes and Denies seasonal rhinorrhea Physical Exam Exam Exam: Vital Signs: Last Vital Signs Pulse 63 08/02/25 08:51 BP 114/60 08/02/25 08:51 Pulse Ox 97 08/02/25 08:51 Oxygen Delivery Method Room Air 08/02/25 08:51 BMI result Body Mass Index 45.2 Const General: cooperative, healthy appearing, comfortable, no acute distress, well developed and alert Nutritional Appearance: obese Orientation/consciousness: patient oriented x3 Limitations: no limitations HEENT Head: Yes normal to inspection, Yes normocephalic and Yes atraumatic Ears: hearing grossly normal bilaterally and external ears normal Eyes General: appearance normal, both eyes and all related structures Eyelids: Yes eyelids normal Sclerae: sclerae normal EOM: EOMs intact bilaterally Neck Neck: Yes normal visual inspection and Yes no lymphadenopathy Lymphatic: no lymphadenopathy noted Chest Chest palpation & inspection: normal inspection of the chest Resp Effort & Inspection: normal respiratory effort, able to speak in complete sentences, no audible wheezes, no cough, no stridor, not tachypneic, no tripod positioning and no use of accessory muscles Auscultation: clear to auscultation bilaterally Cardio Jugular venous distension: no JVD Rate: regular rate Rhythm: regular rhythm Skin Other: warm, dry General skin exam: no rashes or lesions noted Neuro General: patient oriented x3 Cranial nerves: Yes Normal hearing present Cognition (Neuro): normal cognition Gait exam (Neuro): Normal gait present Extrem General: Yes normal to inspection, Yes capillary refill normal, Yes no clubbing, cyanosis or edema and Yes no pedal edema Psych Appearance: grossly normal and well kempt Speech and movement: Normal speech and movement present and Clear speech present Affect: normal affect Attitude: cooperative Thought process: Normal thought process present Thought content: Normal thought content present Insight: Good insight present (Psych) Judgement: Good judgement present (Psych) Results Reviewed Results Reviewed: [address] [address] [address] Scan Report Signed Patient: Aleyda Arcos MR#: [id number] : 1960 Acct:[id number] Age/Sex: 64 / F ADM Date: 07/29/25 Loc: HO.CT Attending Dr: Alexandra Almanza NP Ordering Physician: Alexandra Almanza NP Date of Service: 07/29/25 Procedure(s): CT chest wo IV con Accession Number(s): [id number] cc: Asia Motley MD; Alexandra Almanza NP~ Report Number: [id number]: Total DLP = 275.00 mGy-cm Reason for Exam: R91.8 - Other nonspecific abnormal finding of lung field CLINICAL HISTORY: R91.8 - Other nonspecific abnormal finding of lung field CT chest without contrast Comparison: CT/RI/SR - CT CHEST WO IV CON - 07/27/24 09:17 EST Findings: The heart size is normal. Mild Atherosclerosis calcification of the coronary artery. The visualized thyroid and mediastinum are unremarkable. Mild emphysema. There are calcified granulomas. Stable 4 mm noncalcified nodule of the left lower lobe series 5, image 111. Stable 3 mm nodule of the right middle lobe image 79. Stable additional micro nodules. The upper abdomen is unremarkable. Small hiatal hernia. No acute fractures. IMPRESSION: Stable pulmonary nodules. CT chest follow-up in 1 year as indicated. Fleischner Society 2017 Guidelines for incidentally detected indeterminate nodules in persons 35 years of age or older. Single Solid Nodules: 5 mm or smaller nodules need no follow-up in low risk, and [address] follow-up is optional in high risk patients. 6-8 mm nodules have optional [address] follow-up in low risk, and 6-[address] follow-up followed by 18-[address] follow-up if no change in high risk patients. 9 mm or larger nodules should consider CT, PET/CT, or biopsy at 3 months regardless of patient risk. Multiple Solid Nodules: 5 mm or smaller nodules need no follow-up in low risk, and [address] follow-up is optional in high risk patients. 6-8 mm nodules need 3-[address] follow-up followed by an optional 18-[address] follow-up regardless of patient risk. 9 mm or larger nodules should consider 3-[address] follow-up. For low risk 18-24 month follow-up is optional, whereas for high risk it is needed. Single Ground Glass Nodules: 5 mm or smaller nodules need no followup 6 mm and larger nodules need CT at 6-12 months to confirm persistence, then CT every 2 years until 5 years Single Subsolid Nodules: 5 mm or smaller nodules need no followup 6 mm and larger nodules need CT at 3-6 months to confirm persistence. If no change and solid component /T/lt;6 mm, then CT every year until 5 years Multiple Ground Glass or Subsolid Nodules: 5 mm or smaller nodules need CT at 3-6 months. If stable, optional CT at 2 and 4 years. 6 mm or larger nodules need CT at 3-6 months. Subsequent management based on most suspicious nodule This document has been electronically signed by: Mansoor Benitez MD on 07/29/2025 16:36:33 Dictated By: Mansoor Benitez MD Signed By: <Electronically signed by Mansoor Benitez MD in OV> 07/29/25 1636 DD/ 163 TD/TT: 07/29/25 163 Blueprint Blocker: Assessment & Plan Assessment & Plan (1) Asthma: Code(s): J45.909 - Unspecified asthma, uncomplicated Category: Medical Qualifiers: Asthma severity: moderate Asthma persistence: persistent Asthma compli cation type: uncomplicated Qualified Code(s): J45.40 - Moderate persistent asthma, uncomplicated (2) HAYDEE (obstructive sleep apnea): Code(s): G47.33 - Obstructive sleep apnea (adult) (pediatric) Category: Medical (3) Tracheomalacia: Code(s): J39.8 - Other specified diseases of upper respiratory tract Category: Medical (4) GERD (gastroesophageal reflux disease): Code(s): K21.9 - Gastro-esophageal reflux disease without esophagitis Category: Medical Qualifiers: Esophagitis presence: esophagitis presence not specified Qualified Code(s): K21.9 - Gastro-esophageal reflux disease without esophagitis (5) Multiple pulmonary nodules: Code(s): R91.8 - Other nonspecific abnormal finding of lung field Category: Medical Plan The patient reports significant sleep disruption and discomfort with her CPAP, despite objective data showing good compliance. Discussed with the patient her continued intolerance of CPAP therapy due to discomfort and sleep disruption, despite objective data showing good adherence and efficacy. We reviewed alternatives including the Inspire device, which she declined, and positional aids. Recommended a repeat home sleep study to reassess the severity of her HAYDEE and guide future treatment decisions. Regarding her asthma, Reviewed her current regimen and her symptom of incomplete exhalation. Recommended she increase her Wixela to twice daily as prescribed to improve her symptoms of likely air trapping. We also discussed that a switch to a different inhaler type is possible if the cough from the Wixela powder persists, and educated her on the proper use of her albuterol rescue inhaler. 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 We will follow up in three months to review the sleep study results and assess her response to the change in her asthma therapy. Recent chest CT revealed stable pulmonary nodules, will repeat in one year. All questions were answered and patient is in agreement of plan. Patient was informed and verbally consented to the use of an ambient scribe for clinic note documentation during this visit. Orders: Orders RT home sleep study Today G47.8 - Other sleep disorders, R40.0 - Somnolence CT chest wo IV con 11 Months R91.8 - Other nonspecific abnormal finding of lung field Coding Level of Care Code Est Pt Level 4 (11721) Complex visit Add On G2211 Diagnoses Moderate persistent asthma without complication J45.40 Asthma severity: moderate Asthma persistence: persistent Asthma complication type: uncomplicated HAYDEE (obstructive sleep apnea) G47.33 Tracheomalacia J39.8 Gastroesophageal reflux disease, unspecified whether esophagitis present K21.9 Esophagitis presence: esophagitis presence not specified Multiple pulmonary nodules R91.8
[2025-08-02 08:51] VITALS: BP 114/60; PULSE 63; O2SAT 97; BMI 45.2
== END 2025-08-02 09:28 | disposition home or self-care (01) ==
LOC: HO.HPSW 08:48
PROVIDERS: PCP Internal Medicine; Visit Provider Nurse Practitioner Family
DX: J45.40 Moderate persistent asthma, uncomplicated (principal); G47.33 Obstructive sleep apnea (adult) (pediatric); J39.8 Other specified diseases of upper respiratory tract; K21.9 Gastro-esophageal reflux disease without esophagitis; R91.8 Other nonspecific abnormal finding of lung field
CPT/HCPCS: 99214